=== PATIENT | female | born 1955 | race Two or more races ===

== ENCOUNTER 2021-01-09 08:38 | Emergency (ER) | payer OTHER ==
[~2021-01-09] VITALS: Ht 162.6 cm; Wt 44.5 kg
[2021-01-09 09:07] LABS: Urine Bacteria NONE SEEN /hpf (None Seen); Urine Blood 1+ /uL (Negative); Urine Mucus MANY (None Seen); Urine Specific Gravity 1.029 (1.001-1.035); Urine WBC 7 /hpf (0 - 5)
[2021-01-09 09:37] LABS: Basophils # (auto) 0.1 10 ^3/uL (0-0.2); Basophils % (auto) 1.3 % (0.0-2.0); Eosinophils # (auto) 0.1 10 ^3/uL (0-0.8); Eosinophils % (auto) 1.2 % (0.0-7.0); Hematocrit 38.7 % (36.0-46.0); Hemoglobin 13.3 g/dL (12.2-16.2); Lymphocytes # (auto) 2.8 10 ^3/uL (0.4-5.4); Lymphocytes % (auto) 28.4 % (10.0-50.0); Mean Corpuscular Hemoglobin 33.2 pg (28.0-32.0); Mean Corpuscular Hgb Conc. 34.4 g/dL (32.0-36.0); Mean Corpuscular Volume 96.5 fL (80.0-100.0); Monocytes # (auto) 0.3 10 ^3/uL (0-1.3); Monocytes % (auto) 3.4 % (0.0-12.0); Neutrophils # (auto) 6.4 10 ^3/uL (1.6-8.6); Neutrophils % (auto) 65.7 % (37.0-80.0); Nucleated Red Blood Cells % 0.2 %; Red Blood Cells 4.01 10^6/uL (4.0-5.20); Red Cell Distribution Width 14.2 % (11.8-14.3); White Blood Cell 9.8 10^3/uL (4.4-10.8)
[2021-01-09 09:53] LABS: Albumin 3.3 g/dL (3.4-5.0); Anion Gap 7 (5-15); Blood Alcohol < 3.0 mg/dL (0-5); Blood Urea Nitrogen 16 mg/dL (7-18); Calcium 8.9 mg/dL (8.5-10.1); Carbon Dioxide 25 mmol/L (21-32); Chloride 108 mmol/L (98-107); Glucose 74 mg/dL (74-106); Potassium 3.7 mmol/L (3.5-5.1); Sodium 140 mmol/L (136-145)
[2021-01-09 09:57] LABS: Alanine Aminotransferase 31 U/L (13-56); Alkaline Phosphatase 52 U/L (45-117); Aspartate Aminotransferase 34 U/L (15-37); BUN/Creatinine Ratio 14.7; Bilirubin, Total 0.8 mg/dL (0.2-1.0); GFR African American 64 mL/min; GFR Non-African American 53 mL/min; Total Protein 6.9 g/dL (6.4-8.2)
[2021-01-09] MEDS ORDERED: SODIUM CHLORIDE 0.9% 500 ML IV ONE (10:15)
[2021-01-09] MEDS ORDERED: SODIUM CHLORIDE 0.9% 1,000 ML IV ONE (10:15)
[2021-01-09] MEDS ORDERED: cefTRIAXone 1GM/50ML D5W 50 ML IV ONE (11:30)
[2021-01-09] MEDS ORDERED: LEVOTHYROXINE SODIUM 100 MCG/5 ML INJ IV ONE (11:30)
[2021-01-09 13:47] VITALS: BP 97/68
== END 2021-01-09 13:51 | disposition home or self-care (01) ==
LOC: ER 08:38
DX: R53.1 Weakness (principal); E03.9 Hypothyroidism, unspecified; N39.0 Urinary tract infection, site not specified; E46 Unspecified protein-calorie malnutrition; J44.9 Chronic obstructive pulmonary disease, unspecified; F17.210 Nicotine dependence, cigarettes, uncomplicated; C73 Malignant neoplasm of thyroid gland; Z68.1 Body mass index [BMI] 19.9 or less, adult
CPT/HCPCS: 36415; 71045; 80053; 80320; 81001; 83605; 83735; 84443; 84484; 85025; 87040; 87086; 93005; 96361; 96365; 96366; 96375; 99285; J0696; J3490; J7030; J7040

== ENCOUNTER 2021-11-13 07:27 | Emergency (ER) | payer OTHER ==
[~2021-11-13] VITALS: Ht 160 cm; Wt 50.2 kg
[2021-11-13 07:56] VITALS: BP 104/68
[2021-11-13] MEDS ORDERED: IBUPROFEN 600 MG TAB PO ONE (08:00)
[2021-11-13] MEDS ORDERED: cefTRIAXone SOD 1,000 MG VL IM ONE (08:00)
[2021-11-13] MEDS ORDERED: CLIN300C8 PO (08:13)
[2021-11-13] MEDS ORDERED: IBUP600T27 PO (08:13)
== END 2021-11-13 08:26 | disposition home or self-care (01) ==
LOC: ER 07:27
DX: K02.9 Dental caries, unspecified (principal); J44.9 Chronic obstructive pulmonary disease, unspecified
CPT/HCPCS: 96372; 99283; J0696

== ENCOUNTER 2022-12-12 08:14 | Inpatient (IN) | payer OTHER ==
[~2022-12-12] VITALS: Ht 160 cm; Wt 58.1 kg
[~2022-12-12 08:14] MED LIST: CLIN300C70 PO; IBUP-1454 PO
[2022-12-12 08:56] LABS: Basophils # (auto) 0.1 10 ^3/uL (0-0.2); Basophils % (auto) 0.2 % (0.0-2.0); Eosinophils # (auto) 0 10 ^3/uL (0-0.8); Eosinophils % (auto) 0.1 % (0.0-7.0); Hematocrit 41.1 % (36.0-46.0); Hemoglobin 13.6 g/dL (12.2-16.2); Lymphocytes # (auto) 1.7 10 ^3/uL (0.4-5.4); Lymphocytes % (auto) 7.1 % (10.0-50.0); Mean Corpuscular Hemoglobin 31.2 pg (28.0-32.0); Mean Corpuscular Hgb Conc. 33.1 g/dL (32.0-36.0); Mean Corpuscular Volume 94.1 fL (80.0-100.0); Monocytes # (auto) 1.2 10 ^3/uL (0-1.3); Monocytes % (auto) 4.9 % (0.0-12.0); Neutrophils # (auto) 21.3 10 ^3/uL (1.6-8.6); Neutrophils % (auto) 87.7 % (37.0-80.0); Red Blood Cells 4.36 10^6/uL (4.0-5.20); Red Cell Distribution Width 15.2 % (11.8-14.3); White Blood Cell 24.3 10^3/uL (4.4-10.8)
[2022-12-12 09:20] LABS: Alanine Aminotransferase 10 U/L (7-40); Albumin 4.4 g/dL (3.2-4.8); Alkaline Phosphatase 50 U/L (46-116); Anion Gap 10 (5-15); Aspartate Aminotransferase 16 U/L (13-40); BUN/Creatinine Ratio 14.6 (10.0-20.0); Bilirubin, Total 2.3 mg/dL (0.2-1.0); Blood Urea Nitrogen 12 mg/dL (9-23); Calcium 8.7 mg/dL (8.5-10.1); Carbon Dioxide 21 mmol/L (20-30); Chloride 105 mmol/L (98-107); Glucose 97 mg/dL (74-106); Lactic Acid w/Reflex 2.2 mmol/L (0.4-2.0); Potassium 3.4 mmol/L (3.5-5.1); Sodium 136 mmol/L (136-145); Total Protein 7.2 g/dL (5.7-8.2)
[2022-12-12 11:20] LABS: Urine Bacteria NONE SEEN /hpf (None Seen); Urine Blood 3+ /uL (Negative); Urine Clarity HAZY (Clear); Urine Color Yellow (Yellow); Urine Mucus FEW (None Seen); Urine Protein, UAD 1+ (Negative); Urine Specific Gravity 1.026 (1.001-1.035); Urine Urobilinogen Normal (Negative); Urine WBC 12 /hpf (0 - 5); Urine pH 5.5 (5.0-8.0)
[2022-12-12] MEDS ORDERED: CLINDAMYCIN 600MG IV 50 ML IV ONE (11:30)
[2022-12-12] MEDS ORDERED: ONDANSETRON HCL 4 MG/2 ML VIAL IV ONE (11:30)
[2022-12-12] MEDS ORDERED: SODIUM CHLORIDE 0.9% 500 ML IV ONE (11:30)
[2022-12-12] MEDS ORDERED: MORPHINE SULFATE INJ 2 MG/ml SYRG IV ONE (11:30)
[2022-12-12 11:32] VITALS: PULSE 88; RESP 19; O2SAT 97
[2022-12-12] MEDS: CLINDAMYCIN 300MG IV 50 ML IV SCH ×2 (12:06→14:10)
[2022-12-12] MEDS ORDERED: OXYB5TAB10 PO (14:30)
[2022-12-12] MEDS ORDERED: POTASSIUM EFFERVESENT TAB 25 MEQ PO ONE (14:30)
[2022-12-12] MEDS ORDERED: CITA-77 PO (14:30)
[2022-12-12] MEDS ORDERED: NITR100C6 PO (14:30)
[2022-12-12] MEDS ORDERED: LEVO50TA7 PO (14:30)
[2022-12-12] MEDS ORDERED: ACETAMINOPHEN 325 MG TAB PO PRN (14:30)
[2022-12-12] MEDS ORDERED: MORPHINE SULFATE INJ 2 MG/ml SYRG IV PRN (14:30)
[2022-12-12] MEDS ORDERED: NITROGLYCERIN 0.4 MG SL TAB SL PRN (14:30)
[2022-12-12] MEDS ORDERED: MIDO5TAB4 PO (14:30)
[2022-12-12] MEDS ORDERED: ALEN70TA74 PO (14:30)
[2022-12-12] MEDS: SODIUM CHLORIDE 0.9% 1,000 ML IV SCH (14:44)
[2022-12-12] MEDS ORDERED: ALENDRONATE SODIUM 10 MG TAB PO SCH (14:45)
[2022-12-12] MEDS ORDERED: ALBUTEROL MEDNEB 2.5 mg/3ml NEB NEB PRN (15:15)
[2022-12-12 19:25] VITALS: PULSE 86; RESP 19; O2SAT 96
[2022-12-12 21:11] VITALS: O2SAT 99
[2022-12-12] MEDS ORDERED: CLINDAMYCIN 600MG IV 50 ML IV SCH (22:00)
[2022-12-12] MEDS: OXYBUTYNIN CHL 5 MG TAB PO SCH (22:00)
[2022-12-12] MEDS: ASCORBIC ACID 500 MG TAB PO SCH (22:00)
[2022-12-12] MEDS: CLINDAMYCIN 300MG IV 100 ML IV SCH (22:30)
[2022-12-12 23:41] VITALS: BP 89/62; PULSE 87; RESP 18; TEMP 97.1
[2022-12-13] MEDS: SODIUM CHLORIDE 0.9% 1,000 ML IV SCH ×2 (03:50→18:55)
[2022-12-13 05:50] LABS: Basophils # (auto) 0 10 ^3/uL (0-0.2); Basophils % (auto) 0.3 % (0.0-2.0); Eosinophils # (auto) 0.2 10 ^3/uL (0-0.8); Eosinophils % (auto) 1.3 % (0.0-7.0); Hemoglobin 11.5 g/dL (12.2-16.2); Lymphocytes # (auto) 1.8 10 ^3/uL (0.4-5.4); Lymphocytes % (auto) 13.2 % (10.0-50.0); Mean Corpuscular Hemoglobin 31.3 pg (28.0-32.0); Mean Corpuscular Hgb Conc. 32.9 g/dL (32.0-36.0); Mean Corpuscular Volume 95.1 fL (80.0-100.0); Monocytes # (auto) 0.7 10 ^3/uL (0-1.3); Monocytes % (auto) 4.9 % (0.0-12.0); Neutrophils % (auto) 80.3 % (37.0-80.0); Nucleated Red Blood Cells % 0.1 %; Red Blood Cells 3.68 10^6/uL (4.0-5.20); Red Cell Distribution Width 15.3 % (11.8-14.3); White Blood Cell 13.8 10^3/uL (4.4-10.8)
[2022-12-13 05:56] LABS: Alkaline Phosphatase 41 U/L (46-116); Anion Gap 8 (5-15); BUN/Creatinine Ratio 10.8 (10.0-20.0); Blood Urea Nitrogen 7 mg/dL (9-23); Carbon Dioxide 20 mmol/L (20-30); Chloride 109 mmol/L (98-107); Glucose 76 mg/dL (74-106); Potassium 3.4 mmol/L (3.5-5.1); Sodium 137 mmol/L (136-145)
[2022-12-13 05:57] LABS: Albumin 3.4 g/dL (3.2-4.8); Aspartate Aminotransferase 12 U/L (13-40); Bilirubin, Total 1.3 mg/dL (0.2-1.0); Total Protein 5.6 g/dL (5.7-8.2)
[2022-12-13 06:06] VITALS: O2SAT 97
[2022-12-13 06:22] LABS: Alanine Aminotransferase < 9 U/L (7-40)
[2022-12-13] MEDS: CLINDAMYCIN 300MG IV 100 ML IV SCH (06:32)
[2022-12-13] MEDS ORDERED: MEGE40TA4 (07:36)
[2022-12-13 08:12] VITALS: BP 107/63; PULSE 65; PULSE 72; RESP 18; TEMP 98; O2SAT 98
[2022-12-13] MEDS: MULTIPLE VITAMIN TAB PO SCH (10:58)
[2022-12-13] MEDS: ZINC SULFATE 220mg CAP or TAB PO SCH (10:58)
[2022-12-13] MEDS: ASCORBIC ACID 500 MG TAB PO SCH ×2 (10:58→22:11)
[2022-12-13] MEDS: LEVOTHYROXINE SODIUM 50 MCG TAB PO SCH (10:58)
[2022-12-13] MEDS: OXYBUTYNIN CHL 5 MG TAB PO SCH ×2 (10:59→22:11)
[2022-12-13] MEDS: CITALOPRAM HYDROBR 20 MG TAB PO SCH (10:59)
[2022-12-13] MEDS: MIDODRINE HCL 10 MG TAB PO SCH (10:59)
[2022-12-13] MEDS: ENOXAPARIN SOD 40 MG/0.4 ML SYRINGE SC SCH (11:00)
[2022-12-13] MEDS ORDERED: VANCOMYCIN 1GM/250ML 250 ML IV ONE (11:00)
[2022-12-13] MEDS ORDERED: VANCOMYCIN PER PHARMACY 0 MG IV SCH (11:00)
[2022-12-13 17:24] VITALS: BP 107/63; PULSE 85; RESP 20; TEMP 98; O2SAT 95
[2022-12-13 20:00] VITALS: BP 94/50; PULSE 71; PULSE 72; RESP 17; TEMP 97.5; O2SAT 98
[2022-12-13 22:00] VITALS: BP 94/50; PULSE 71; RESP 17; TEMP 97.5; O2SAT 98
[2022-12-13 22:20] VITALS: O2SAT 97
[2022-12-14] VITALS (8 sets, daily range): BP systolic 96–122; BP diastolic 50–60; PULSE 60–81; RESP 17–19; TEMP 97.5–98.1; O2SAT 98–100
[2022-12-14] MEDS: SODIUM CHLORIDE 0.9% 1,000 ML IV SCH ×2 (02:59→21:53)
[2022-12-14] MEDS ORDERED: VANCOMYCIN 1GM/250ML 250 ML IV SCH (03:00)
[2022-12-14] MEDS: ASCORBIC ACID 500 MG TAB PO SCH ×2 (11:23→21:41)
[2022-12-14] MEDS: LEVOTHYROXINE SODIUM 50 MCG TAB PO SCH (11:23)
[2022-12-14] MEDS: MIDODRINE HCL 10 MG TAB PO SCH (11:23)
[2022-12-14] MEDS: ZINC SULFATE 220mg CAP or TAB PO SCH (11:23)
[2022-12-14] MEDS: OXYBUTYNIN CHL 5 MG TAB PO SCH ×2 (11:24→21:41)
[2022-12-14] MEDS: CITALOPRAM HYDROBR 20 MG TAB PO SCH (11:24)
[2022-12-14] MEDS: ENOXAPARIN SOD 40 MG/0.4 ML SYRINGE SC SCH (11:24)
[2022-12-14] MEDS: MULTIPLE VITAMIN TAB PO SCH (11:24)
[2022-12-14] MEDS: AMPICILLIN INJ 1 GM in SODIUM CHL 0.9% 100 ML IV SCH ×2 (13:28→18:52)
[2022-12-14] MEDS ORDERED: TEMAZEPAM 15 MG CAP PO PRN (23:30)
[2022-12-15] MEDS: AMPICILLIN INJ 1 GM in SODIUM CHL 0.9% 100 ML IV SCH ×3 (00:30→12:30)
[2022-12-15] MEDS: NICOTINE 14 MG/24HR TOPICAL PATCH TD SCH ×2 (00:31→10:58)
[2022-12-15 05:00] VITALS: BP 119/74; PULSE 78; RESP 19; TEMP 98.3; O2SAT 100
[2022-12-15 08:30] VITALS: PULSE 70; PULSE 72; RESP 18; O2SAT 100
[2022-12-15 09:31] LABS: Hepatitis B Surface Antigen Negative (Negative)
[2022-12-15 09:53] LABS: Hepatitis C Antibody Negative (Negative)
[2022-12-15] MEDS: LEVOTHYROXINE SODIUM 50 MCG TAB PO SCH (10:55)
[2022-12-15] MEDS: CITALOPRAM HYDROBR 20 MG TAB PO SCH (10:55)
[2022-12-15] MEDS: ZINC SULFATE 220mg CAP or TAB PO SCH (10:55)
[2022-12-15] MEDS: SODIUM CHLORIDE 0.9% 1,000 ML IV SCH (10:55)
[2022-12-15] MEDS: OXYBUTYNIN CHL 5 MG TAB PO SCH (10:55)
[2022-12-15] MEDS: MIDODRINE HCL 10 MG TAB PO SCH (10:56)
[2022-12-15] MEDS: MULTIPLE VITAMIN TAB PO SCH (10:56)
[2022-12-15] MEDS: ENOXAPARIN SOD 40 MG/0.4 ML SYRINGE SC SCH (10:56)
[2022-12-15] MEDS: ASCORBIC ACID 500 MG TAB PO SCH (10:57)
[2022-12-15] MEDS ORDERED: AMPI500C9 PO (12:29)
[2022-12-15] MEDS ORDERED: HYDR-4902 PO (12:30)
== END 2022-12-15 15:00 | disposition home or self-care (01) | DRG 872 ==
LOC: ER 08:14 → TELE 14:30 → TELE-WESTW 12-13 08:54
PROVIDERS: ADMIT Nurse Practitioner Family; ATTEND Family Medicine
DX: A41.9 Sepsis, unspecified organism (principal); L03.114 Cellulitis of left upper limb; J44.1 Chronic obstructive pulmonary disease with (acute) exacerbation; N30.00 Acute cystitis without hematuria; F17.210 Nicotine dependence, cigarettes, uncomplicated; E80.6 Other disorders of bilirubin metabolism; I95.89 Other hypotension; F32.A Depression, unspecified; E03.9 Hypothyroidism, unspecified; E87.6 Hypokalemia; S61.412A Laceration without foreign body of left hand, initial encounter; X58.XXXA Exposure to other specified factors, initial encounter; Z85.850 Personal history of malignant neoplasm of thyroid; Z79.1 Long term (current) use of non-steroidal anti-inflammatories (NSAID); Z79.899 Other long term (current) drug therapy; Z80.9 Family history of malignant neoplasm, unspecified; Z83.3 Family history of diabetes mellitus; Y93.89 Activity, other specified; Y92.89 Other specified places as the place of occurrence of the external cause; Y99.8 Other external cause status
CPT/HCPCS: 36415; 73200; 80053; 81001; 83605; 83735; 85025; 86803; 87040; 87070; 87077; 87081; 87086; 87205; 87340; G0378; J2405; J3490

== ENCOUNTER 2023-07-16 16:25 | Emergency (ER) | payer OTHER ==
[~2023-07-16] VITALS: Ht 160 cm; Wt 51.0 kg
[~2023-07-16 16:25] MED LIST changes: +ALEN70TA74 PO; +AMPI500C9 PO; +CITA-77 PO; +CLIN1CAP70 PO; -CLIN300C70 PO; +HYDR-4902 PO; +LEVO50TA7 PO; +MEGE40TA4; +MIDO5TAB4 PO; +NITR100C6 PO; +OXYB5TAB14 PO
[2023-07-16 17:15] LABS: Basophils # (auto) 0 10 ^3/uL (0-0.2); Basophils % (auto) 0.3 % (0.0-2.0); Eosinophils # (auto) 0.1 10 ^3/uL (0-0.8); Eosinophils % (auto) 0.5 % (0.0-7.0); Hematocrit 42.1 % (36.0-46.0); Hemoglobin 13.9 g/dL (12.2-16.2); Mean Corpuscular Hemoglobin 28.5 pg (28.0-32.0); Mean Corpuscular Hgb Conc. 33.1 g/dL (32.0-36.0); Mean Corpuscular Volume 86.2 fL (80.0-100.0); Monocytes # (auto) 0.6 10 ^3/uL (0-1.3); Monocytes % (auto) 5.3 % (0.0-12.0); Neutrophils % (auto) 84.9 % (37.0-80.0); Red Blood Cells 4.89 10^6/uL (4.0-5.20); Red Cell Distribution Width 13.5 % (11.8-14.3); White Blood Cell 10.6 10^3/uL (4.4-10.8)
[2023-07-16 17:29] LABS: Alanine Aminotransferase 16 U/L (7-40); Albumin 4.3 g/dL (3.2-4.8); Alkaline Phosphatase 46 U/L (46-116); Anion Gap 8 (5-15); Aspartate Aminotransferase 14 U/L (13-40); BUN/Creatinine Ratio 31.9 (10.0-20.0); Bilirubin, Total 0.7 mg/dL (0.2-1.0); Blood Urea Nitrogen 23 mg/dL (9-23); Calcium 9.2 mg/dL (8.5-10.1); Carbon Dioxide 21 mmol/L (20-30); Chloride 109 mmol/L (98-107); Glucose 123 mg/dL (74-106); Potassium 3.7 mmol/L (3.5-5.1); Sodium 138 mmol/L (136-145); Total Protein 6.6 g/dL (5.7-8.2)
[2023-07-16 20:14] LABS: Urine Bacteria FEW /hpf (None Seen); Urine Blood 3+ /uL (Negative); Urine Clarity Ex.Turbid (Clear); Urine Color Yellow (Yellow); Urine Mucus FEW (None Seen); Urine Protein, UAD 2+ (Negative); Urine Specific Gravity 1.025 (1.001-1.035); Urine Urobilinogen Normal (Negative); Urine WBC 632 /hpf (0 - 5); Urine WBC Clumps PRESENT /hpf (None Seen); Urine pH 5.5 (5.0-9.0)
[2023-07-16] MEDS ORDERED: BACDST PO (21:01)
[2023-07-16 21:20] VITALS: BP 107/63; PULSE 113; RESP 16; TEMP 97.6; O2SAT 97
[2023-07-16] MEDS: SULFAMETHOX W/TRIMETH(800/160MG) DS TAB PO ONE (21:20)
== END 2023-07-16 21:23 | disposition home or self-care (01) ==
LOC: ER 16:25
DX: N39.0 Urinary tract infection, site not specified (principal); R53.1 Weakness; R41.82 Altered mental status, unspecified; J44.9 Chronic obstructive pulmonary disease, unspecified; F17.210 Nicotine dependence, cigarettes, uncomplicated
CPT/HCPCS: 36415; 70450; 71045; 80053; 81001; 83880; 84484; 85025; 93005

== ENCOUNTER 2025-01-30 08:23 | Inpatient (IN) | payer OTHER ==
[~2025-01-30] VITALS: Ht 160 cm; Wt 41.9 kg
[~2025-01-30 08:23] MED LIST changes: -AMPI500C9 PO; +BACDST PO; -CLIN1CAP70 PO; +LEVO112T4 PO; -LEVO50TA7 PO; +MEMA1TAB3 PO; +MIDO10TA3 PO; -MIDO5TAB4 PO
--- NOTE | 2025-01-30 09:07 | ED.PDOC ---
History of Present Illness HPI Comments 69 year old female with PMHx of COPD and dementia presents to the emergency department for chief complaint of right hip wound onset chronic. Pt reports that they have been bedridden for 2 years and needs the wound on right hip to be checked due to drainage and deterioration. Pt reports that they have tried to contract a wound nurse to regularly perform home visits but to no avail due to insurance complications. Pt reports no associated symptoms of headache, fever, dizziness, syncope, or chest pain. Chief Complaint: Wound Check Time Seen by MD: 09:04 Primary Care Provider: YANG Reviewed Notes: Nurses Notes, Medications, Allergies Allergies: Coded Allergies: NO KNOWN ALLERGIES (Unverified , 11/13/21) Home Meds Active Scripts Sulfamethoxazole W/Trimethopri (Bactrim Ds Tablet) 1 Tab Tb, 1 TAB PO BID for 10 Days, #20 TAB Prov:DARION SAVAGE PAC 07/16/23 Hydrocodone-Acetaminophen (Hydrocodone Bitartrate/AC 5-325 mg) 1 Tab Tab, 1 TAB PO Q6HR PRN, #30 TAB Prov:HINA AGEE MD 12/15/22 Ibuprofen (Ibuprofen) 600 Mg Tab, 1 TAB PO TID, #30 TAB Prov:MICHAEL CHRISTY 11/13/21 Reported Medications Midodrine Hcl (Midodrine Hcl) 10 Mg Tab, 1 TAB PO DAILY 06/19/24 Memantine Hydrochloride (Memantine HCl) 5 Mg Tab, 1 TAB PO BID 06/19/24 Levothyroxine Sodium (Levothyroxine Sodium) 112 Mcg Tab, 1 TAB PO DAILY 06/19/24 Megestrol Acetate (Megestrol Acetate) 40 Mg Tab 12/13/22 Nitrofurantoin Monohyd Macro (Nitrofurantoin Monohydrat) 100 Mg Cap, 1 CAP PO BID 12/12/22 Alendronate Sodium (Alendronate Sodium) 70 Mg Tab, 1 TAB PO QWEEKLY 12/12/22 Citalopram Hydrobromide (Citalopram Hydrobromide) 20 Mg Tab, 1 TAB PO DAILY 12/12/22 Oxybutynin Chloride (Oxybutynin Chloride) 5 Mg Tab, 1 TAB PO BID 12/12/22 Information Source: Patient, Relative (Child) Mode of Arrival: Wheelchair Severity: Moderate Timing: Months, Came on: Gradually Duration: Since onset Past Medical History PAST MEDICAL HISTORY: Cancer, COPD, Dementia, Thyroid Surgical History: Thyroidectomy AD WRITER History: No Pertinent AD WRITER History Family History Family History: Family hx of DM, Family hx of Cancer Social History Smoker: Cigarettes Alcohol: Denies ETOH Use Drugs: Denies Drug Use Lives In: Home Physical Exam General Appearance: Moderate Distress HEENT: Normal ENT Inspection, Pharynx Normal, TMs Normal Neck: Full Range of Motion, Non-Tender, Normal, Normal Inspection Respiratory: Chest Non-Tender, Lungs Clear, No Accessory Muscle Use, No Respiratory Distress, Normal Breath Sounds Cardiovascular: No Edema, No JVD, No Murmur, No Gallop, Normal Peripheral Pulses, Regular Rate/Rhythm Breast Exam: Deferred Gastrointestinal: No Organomegaly, Non Tender, No Pulsatile Mass, Normal Bowel Sounds, Soft Genitalia: Deferred Pelvic: Deferred Rectal: Deferred Extremities: No calf tenderness, No pedal edema Musculoskeletal : Apperance: Normal Neurologic: No Motor Deficits Cerebellar Function: NOT DONE Reflexes: NOT DONE Skin: Wounds (Buttocks hip) Peripheral Pulses: 3+ Radial (R), 3+ Radial (L) Lymphatic: No Adenopathy Was a procedure done? Was a procedure done?: No Differential Dx Considerations may include: Anemia Electrolyte imbalance X-Ray, Labs, Meds, VS Vital Signs Date Time Temp Pulse Resp B/P (MAP) Pulse Ox O2 Delivery O2 Flow Rate FiO2 01/30/25 10:55 104 26 111/61 (78) 96 01/30/25 09:53 105 24 99 Room Air* 0 21 01/30/25 09:38 97.9 105 24 103/64 (77) 99 97.9 01/30/25 08:38 97.7 91 14 114/68 98 97.7 Lab Test 01/30/25 12:16 01/30/25 09:52 Range/Units Lactic Acid Level Pending 2.6 *H 0.4-2.0 mmol/L White Blood Count 10.6 4.4-10.8 10^3/uL Red Blood Count 4.33 4.0-5.20 10^6/uL Hemoglobin 12.7 12.2-16.2 g/dL Hematocrit 37.7 36.0-46.0 % Mean Corpuscular Volume 87.0 80.0-100.0 fL Mean Corpuscular Hemoglobin 29.3 28.0-32.0 pg Mean Corpuscular Hemoglobin Concent 33.7 32.0-36.0 g/dL Red Cell Distribution Width 13.0 11.8-14.3 % Platelet Count 494 H 140-450 10^3/uL Mean Platelet Volume 8.6 6.9-10.8 fL Neutrophils (%) (Auto) 75.9 37.0-80.0 % Lymphocytes (%) (Auto) 17.0 10.0-50.0 % Monocytes (%) (Auto) 4.8 0.0-12.0 % Eosinophils (%) (Auto) 1.3 0.0-7.0 % Basophils (%) (Auto) 1.0 0.0-2.0 % Neutrophils # (Auto) 8.1 1.6-8.6 10 ^3/uL Lymphocytes # (Auto) 1.8 0.4-5.4 10 ^3/uL Monocytes # (Auto) 0.5 0-1.3 10 ^3/uL Eosinophils # (Auto) 0.1 0-0.8 10 ^3/uL Basophils # (Auto) 0.1 0-0.2 10 ^3/uL Nucleated Red Blood Cells 0.0 % Sodium Level 139 136-145 mmol/L Potassium Level 3.4 L 3.5-5.1 mmol/L Chloride Level 108 H 98-107 mmol/L Carbon Dioxide Level 21 20-31 mmol/L Anion Gap 10 5-15 Blood Urea Nitrogen 6 L 9-23 mg/dL Creatinine 0.43 L 0.550-1.02 mg/dL Glomerular Filtration Rate Calc 104 >90 mL/min BUN/Creatinine Ratio 14.0 10.0-20.0 Serum Glucose 132 H 74-106 mg/dL Calcium Level 8.4 L 8.7-10.4 mg/dL Current Medications Medications (Trade) Dose Ordered Sig/Owen Route Start Time Stop Time Status Last Admin Sodium Chloride 1,000 ml @ 1,000 mls/hr Q1H ONCE IV 01/30/25 09:15 01/30/25 10:14 DC 01/30/25 09:48 Sodium Chloride 500 ml @ 500 mls/hr Q1H ONCE IV 01/30/25 10:15 01/30/25 11:14 DC 01/30/25 10:32 Ceftriaxone Sodium 50 ml @ 100 mls/hr ONCE ONCE IV 01/30/25 10:15 01/30/25 10:44 DC 01/30/25 10:20 Clindamycin Phosphate 50 ml @ 50 mls/hr ONCE ONCE IV 01/30/25 10:15 01/30/25 11:14 DC 01/30/25 11:11 Patient appropriate. Has wounds in the buttocks. Vitals stable. Answering questions. Establish intravenous access. Was given fluids. Possible sepsis. Was given Rocephin. Was given clindamycin. Explained to the family. Continue monitoring. Time of 1ST Reevaluation: 09:34 Reevaluation 1ST: Unchanged Patient Education/Counseling: Diagnosis, Treatment, Need For Follow Up Family Education/Counseling: Diagnosis, Treatment, Need For Follow Up, No Family Present SEPSIS Sepsis Screen Date sepsis recognized/suspect: Jan 30, 2025 Time Sepsis recognized/suspect: 837 Recent Procedure: No On Antibiotic Therapy: No Respiratory Rate >20: No Heart Rate >90: No Temp<36 C (96.8 F) or >38.3 C: No SBP <90 or MAP <65 mmHG: No New Acute Mental Status Change: No Is the patient on CPAP, BIPAP,: No Physician Orders Chest Portable (01/30/25 09:06) Urinalysis (01/30/25 09:06) Ct Ab Pel Wo Con-No Oral Or Iv (01/30/25 09:06) Blood Culture (01/30/25 09:46) Vital Signs Date Time Temp Pulse Resp B/P (MAP) Pulse Ox O2 Delivery O2 Flow Rate FiO2 01/30/25 10:55 104 26 111/61 (78) 96 01/30/25 09:53 105 24 99 Room Air* 0 21 01/30/25 09:38 97.9 105 24 103/64 (77) 99 97.9 01/30/25 08:38 97.7 91 14 114/68 98 97.7 Laboratory Tests Test 01/30/25 09:52 01/30/25 12:16 Lactic Acid Level 2.6 mmol/L (0.4-2.0) *H Pending White Blood Count 10.6 10^3/uL (4.4-10.8) Medications Medications Dose Ordered Sig/Owen Route Start Time Stop Time Status Last Admin Dose Admin Ceftriaxone Sodium 50 ml @ 100 mls/hr ONCE ONCE IV 01/30/25 10:15 01/30/25 10:44 DC 01/30/25 10:20 Clindamycin Phosphate 50 ml @ 50 mls/hr ONCE ONCE IV 01/30/25 10:15 01/30/25 11:14 DC 01/30/25 11:11 Sodium Chloride 500 ml @ 500 mls/hr Q1H ONCE IV 01/30/25 10:15 01/30/25 11:14 DC 01/30/25 10:32 Sodium Chloride 1,000 ml @ 1,000 mls/hr Q1H ONCE IV 01/30/25 09:15 01/30/25 10:14 DC 01/30/25 09:48 Departure 1 Departure Time of Disposition: 12:41 Impression: Primary Impression: Sepsis, unspecified organism Qualified Codes: A41.9 - Sepsis, unspecified organism Disposition: ADMITTED INPATIENT Admit to: Med Surg Condition: Guarded Critical Care Note Critical Care Time?: No Stability Stability form required: No Heart Score Heart Score: Heart Score Response (Comments) Value History N/A 0 EKG N/A 0 Age N/A 0 Risk Factors N/A 0 Troponin N/A 0 Total 0 I personally scribed for DEEPA MUNGUIA MD ([email or web address]) on 01/30/25 at 09:07. Electronically submitted by Ashlee Carney ([email or web address]). I personally scribed for DEEPA MUNGUIA MD ([email or web address]) on 01/30/25 at 09:09. Electronically submitted by Ashlee Carney ([email or web address]). DEEPA MUNGUIA MD Jan 30, 2025 09:07
[2025-01-30] MEDS: SODIUM CHLORIDE 0.9% 1,000 ML IV ONE (09:48)
[2025-01-30 09:53] VITALS: PULSE 105; RESP 24; O2SAT 99
--- NOTE | 2025-01-30 09:53 | DVH ---
CHEST RADIOGRAPH INDICATION: sob TECHNIQUE: Single frontal view of the chest was obtained COMPARISON: XY CHEST PORTABLE on DOS: 06/19/24, XY CHEST PORTABLE on DOS: 07/16/23, CHEST PORTABLE on DOS: 01/09/21 FINDINGS: Lines and Tubes: None Lungs: Clear Pleura: No effusion. No pneumothorax. Cardiomediastinal contours: Unremarkable Bones: Unremarkable IMPRESSION: No acute disease.
--- NOTE | 2025-01-30 10:16 | DVH ---
EXAM: CT CT AB PEL WO CON-NO ORAL OR IV History: Decubitus Comparison Study: None TECHNIQUE: Multidetector CT of the abdomen was performed from lung bases to pubic symphysis. Imaging was performed without IV contrast. Axial, coronal and sagittal multiplanar reformats were obtained from the axial data set by the technologist. Radiation Dose Information: CT Dose: CTDI volume is 5.09 mGy. Dose-length product is 240.06 mGy*cm FINDINGS: Evaluation of solid organs is limited due to lack of intravenous contrast use. FINDINGS: Lung Bases: No acute or significant lung base finding. Normal heart size. No pleural or pericardial effusion. Liver: The liver is normal in size. No focal lesions. Gallbladder and Biliary Tree: Unremarkable Spleen: Unremarkable Pancreas: The pancreas is grossly normal in appearance. Adrenal Glands: Unremarkable Kidneys: Kidneys are grossly normal without calculi or hydronephrosis. Bladder: Grossly unremarkable for degree of distention. Bowel: There is a very large amount of retained stool present within the rectum and colon. Ascites: Absent Lymphadenopathy: No mesenteric, retroperitoneal or periportal lymphadenopathy. Abdominal Wall and Mesentery: Unremarkable. Vasculature: The visualized abdominal aorta is normal in size and caliber. Evaluation of abdominal and pelvic vessels is limited due to lack of intravenous contrast. Pelvic Organs: Unremarkable Musculoskeletal: No aggressive focal bony lesions, acute fractures or dislocation. Soft tissues: There is a 3.0 cm soft tissue defect located on the right at the level of the posterior right femoral neck. IMPRESSION: 1. Findings consistent with decubitus ulcer on the right. 2. Large amount of retained stool is present within the rectum and colon. 3. Radiation optimization: All CT scans at this facility use at least one of these dose optimization techniques: automated exposure control mA and/or kV adjustment per patient size (includes targeted exams where dose is matched to clinical indication) or iterative reconstruction.
[2025-01-30] MEDS: SODIUM CHLORIDE 0.9% 500 ML IV ONE (10:32)
[2025-01-30 10:33] LABS: Hematocrit 37.7 % (36.0-46.0); Hemoglobin 12.7 g/dL (12.2-16.2); Mean Corpuscular Hemoglobin 29.3 pg (28.0-32.0); Mean Corpuscular Volume 87.0 fL (80.0-100.0); Nucleated Red Blood Cells % 0.0 %
[2025-01-30 10:35] LABS: Sodium 139 mmol/L (136-145)
[2025-01-30 10:36] LABS: Anion Gap 10 (5-15); Carbon Dioxide 21 mmol/L (20-31)
[2025-01-30 10:41] LABS: Calcium 8.4 mg/dL (8.7-10.4); Chloride 108 mmol/L (98-107); Potassium 3.4 mmol/L (3.5-5.1)
[2025-01-30 10:42] LABS: BUN/Creatinine Ratio 14.0 (10.0-20.0)
[2025-01-30 10:43] LABS: Blood Urea Nitrogen 6 mg/dL (9-23); Glucose 132 mg/dL (74-106)
[2025-01-30 10:51] LABS: Lactic Acid w/Reflex 2.6 mmol/L (0.4-2.0)
[2025-01-30] MEDS: CLINDAMYCIN 300MG IV 50 ML IV ONE (11:11)
[2025-01-30] MEDS ORDERED: ONDANSETRON HCL 4 MG/2 ML VIAL IV PRN (13:30)
[2025-01-30] MEDS ORDERED: NITROGLYCERIN 0.4 MG SL TAB SL PRN (13:30)
[2025-01-30] MEDS ORDERED: ACETAMINOPHEN 325 MG TAB PO PRN (13:30)
--- NOTE | 2025-01-30 13:42 | DVHHPRES ---
History of Present Illness Resident Creating Document: KERWIN HORNER RESIDENT History of Present Illness Ms Cheung is a 69 y o female with a history of dementia, osteoporosis, thyroid disease, recently discovered clogged artery, and brain aneurysm presenting with a chronic wound that has developed into a hole-like lesion. The wound initially started in mid-to-late September and has followed a pattern of opening and closing over time. The caregiver reports that while the wound appears to have healed on the surface, it has not healed internally and has progressed to form what appears to be a deep cavity with black tissue visible inside, along with some yellow and red tissue. The wound causes pain during cleaning and wiping, which is evident despite the patient's dementia. The patient was recently found to have a clogged artery and was started on cholesterol medication. She also has an aneurysm in her brain and recently underwent a lumbar puncture, which reportedly increased her intracranial pressure. The caregiver mentions the patient has been experiencing increased brain pressure for which patient was started on acetazolamide. Medical History - Aneurysm in brain - Atherosclerosis - Dementia - Osteoporosis - Thyroid condition Surgical History - Lumbar puncture performed recently, which increased intracranial pressure Social History - Living Situation: Lives with caregiver who works at the facility - Caregiving Resources: Primary caregiver is working on obtaining home health services, no current home health aide or social science teacher in place Medications and Supplements - levothyroxine 112 mcg, midodrine HCL 10 mg, memantine HCl 10 mg, Megestrol acetate 40 mg, oxybutynin 5 mg, vitamin D3 5000, alendronate sodium 70 mg, cyanocobalamin, Pepcid 40 mg Review of Systems General: Negative for fever. Neurological: Patient has dementia affecting baseline mental status. Review of Systems Allergies: Coded Allergies: NO KNOWN ALLERGIES (Unverified , 11/13/21) Medications Current Medications Medications Dose Ordered Sig/Owen Route Start Time Stop Time Status Last Admin Dose Admin Sodium Chloride 10 ml Q8HR IV 01/30/25 14:00 UNV Ondansetron HCl 4 mg Q4HP PRN IV 01/30/25 13:30 UNV Enoxaparin Sodium 40 mg DAILY SC 01/31/25 10:00 UNV Acetaminophen 650 mg Q6HP PRN PO 01/30/25 13:30 UNV Nitroglycerin 0.4 mg Q5MINP PRN SL 01/30/25 13:30 UNV Morphine Sulfate 2 mg Q30M PRN IV 01/30/25 13:30 UNV Piperacillin Sod/ Tazobactam Sod 100 ml @ 25 mls/hr Q6HR IV 01/30/25 18:00 UNV Doxycycline Hyclate 100 ml @ 50 mls/hr Q12H IV 01/30/25 13:30 UNV Exam Vital Signs Vital Signs Date Time Temp Pulse Resp B/P (MAP) Pulse Ox O2 Delivery O2 Flow Rate FiO2 01/30/25 10:55 104 26 111/61 (78) 96 01/30/25 09:53 Room Air* 0 21 01/30/25 09:38 97.9 97.9 Exam Pt is lying on bed, limited exam due to patient's clinical status General Appearance: Alert, Oriented X2, HEENT: Atraumatic, Mucous membranes moist/pink Respiratory: Clear to auscultation, Normal air movement, No added sounds Cardiovascular: Regular rate, Normal S1, Normal S2, No murmurs Abdominal: Active bowel sounds, Soft, no distention, no tenderness Extremities: No edema, Normal pulses, No tenderness/swelling Skin: Wound present with black tissue visible inside. Yellow tissue noted with some black tissue on one side. Red tissue also observed in the wound area. Neuro: Normal speech Nurse was there as plastic welding machine operator during examination Labs/Xrays Labs Test 01/30/25 12:16 01/30/25 09:52 Range/Units Lactic Acid Level 1.6 0.4-2.0 mmol/L White Blood Count 10.6 4.4-10.8 10^3/uL Red Blood Count 4.33 4.0-5.20 10^6/uL Hemoglobin 12.7 12.2-16.2 g/dL Hematocrit 37.7 36.0-46.0 % Mean Corpuscular Volume 87.0 80.0-100.0 fL Mean Corpuscular Hemoglobin 29.3 28.0-32.0 pg Mean Corpuscular Hemoglobin Concent 33.7 32.0-36.0 g/dL Red Cell Distribution Width 13.0 11.8-14.3 % Platelet Count 494 H 140-450 10^3/uL Mean Platelet Volume 8.6 6.9-10.8 fL Neutrophils (%) (Auto) 75.9 37.0-80.0 % Lymphocytes (%) (Auto) 17.0 10.0-50.0 % Monocytes (%) (Auto) 4.8 0.0-12.0 % Eosinophils (%) (Auto) 1.3 0.0-7.0 % Basophils (%) (Auto) 1.0 0.0-2.0 % Neutrophils # (Auto) 8.1 1.6-8.6 10 ^3/uL Lymphocytes # (Auto) 1.8 0.4-5.4 10 ^3/uL Monocytes # (Auto) 0.5 0-1.3 10 ^3/uL Eosinophils # (Auto) 0.1 0-0.8 10 ^3/uL Basophils # (Auto) 0.1 0-0.2 10 ^3/uL Nucleated Red Blood Cells 0.0 % Sodium Level 139 136-145 mmol/L Potassium Level 3.4 L 3.5-5.1 mmol/L Chloride Level 108 H 98-107 mmol/L Carbon Dioxide Level 21 20-31 mmol/L Anion Gap 10 5-15 Blood Urea Nitrogen 6 L 9-23 mg/dL Creatinine 0.43 L 0.550-1.02 mg/dL Glomerular Filtration Rate Calc 104 >90 mL/min BUN/Creatinine Ratio 14.0 10.0-20.0 Serum Glucose 132 H 74-106 mg/dL Calcium Level 8.4 L 8.7-10.4 mg/dL SEPSIS Sepsis Screen Date sepsis recognized/suspect: Jan 30, 2025 Time Sepsis recognized/suspect: 939 Recent Procedure: No On Antibiotic Therapy: No Respiratory Rate >20: Yes Heart Rate >90: Yes Temp<36 C (96.8 F) or >38.3 C: No SBP <90 or MAP <65 mmHG: No New Acute Mental Status Change: No Is the patient on CPAP, BIPAP,: No Physician Orders Chest Portable (01/30/25 09:06) Urinalysis (01/30/25 09:06) Ct Ab Pel Wo Con-No Oral Or Iv (01/30/25 09:06) Blood Culture (01/30/25 09:46) Admit (01/30/25 13:17) Allergies (01/30/25 13:17) Code Status (01/30/25 13:17) 2 Gm Sodium Diet (01/30/25 Lunch) Sodium Chloride Lock (Saline Lock Ns) (01/30/25 14:00) Ondansetron Hcl (Zofran) (01/30/25 13:30) Enoxaparin Sodium (Lovenox) (01/31/25 10:00) Complete Blood Count (01/31/25 04:00) Comprehensive Metabolic Panel (01/31/25 04:00) Condition: Fair (01/30/25 13:17) Acetaminophen Tablet (Tylenol Tablet) (01/30/25 13:30) Nitroglycerin Sublingual (Ntrostat Subli (01/30/25 13:30) Oxygen By Nasal Cannula (01/30/25 13:17) Stat Ekg For Chest Pain (01/30/25 13:17) Notify Of Changes From Base (01/30/25 13:17) [employer] Servicer For 24 Hours (01/30/25 13:17) Emergency Dysrhythmia Protocol (01/30/25 13:17) Rhythm Strips Once Every Shift (01/30/25 13:17) Wound Culture W/ Gs (01/30/25 13:17) * Wound Consult (01/30/25 ) Mrsa Screen (01/30/25 13:17) Piperacillin-Tazob 3.375gm (Zosyn 3.375g (01/30/25 18:00) Doxycycline 100mg/100ml (Vibramycin) (01/30/25 13:30) Morphine Sulfate Injection (01/30/25 13:45) Pantoprazole (Protonix) (01/30/25 13:45) B-Type Natriuretic Peptide (01/30/25 13:37) Levothyroxine Tablet (Synthroid Tablet) (01/31/25 10:00) Memantine Tablet (Namenda Tablet) (01/30/25 22:00) Midodrine Tablet (Proamatine Tablet) (01/31/25 10:00) Oxybutynin Chloride Tablet (Ditropan Tab (01/30/25 22:00) Potassium Effervesent Tab (Klor-Con/Ef) (01/30/25 13:45) Vital Signs Date Time Temp Pulse Resp B/P (MAP) Pulse Ox O2 Delivery O2 Flow Rate FiO2 01/30/25 10:55 104 26 111/61 (78) 96 01/30/25 09:53 105 24 99 Room Air* 0 21 01/30/25 09:38 97.9 105 24 103/64 (77) 99 97.9 01/30/25 08:38 97.7 91 14 114/68 98 97.7 Laboratory Tests Test 01/30/25 09:52 01/30/25 12:16 Lactic Acid Level 2.6 mmol/L (0.4-2.0) *H 1.6 mmol/L (0.4-2.0) White Blood Count 10.6 10^3/uL (4.4-10.8) Medications Medications Dose Ordered Sig/Owen Route Start Time Stop Time Status Last Admin Dose Admin Ceftriaxone Sodium 50 ml @ 100 mls/hr ONCE ONCE IV 01/30/25 10:15 01/30/25 10:44 DC 01/30/25 10:20 100 MLS/HR Clindamycin Phosphate 50 ml @ 50 mls/hr ONCE ONCE IV 01/30/25 10:15 01/30/25 11:14 DC 01/30/25 11:11 50 MLS/HR Sodium Chloride 500 ml @ 500 mls/hr Q1H ONCE IV 01/30/25 10:15 01/30/25 11:14 DC 01/30/25 10:32 500 MLS/HR Sodium Chloride 1,000 ml @ 1,000 mls/hr Q1H ONCE IV 01/30/25 09:15 01/30/25 10:14 DC 01/30/25 09:48 1,000 MLS/HR Assessment/Plan Assessment/Plan Acute on chronic metabolic encephalopathy likely from sepsis / ongoing dementia ? Sepsis from decubitus right hip ulcer Acute on Chronic wound with possible tissue necrosis Stage 4-5 decubitus ulcer Lactic acidosis likely from sepsis Plan: - Obtain wound cultures to identify causative organisms - Initiate antibiotic Zosyn and doxycycline( for Gram-negative, Pseudomonas, anaerobes, MRSA coverage ) - Monitor for signs of systemic infection or sepsis - IVF - wound consult - CT abdominal pelvis showed no bony involvement - UA not collected - no surgical consult for now, we will consider if needed Dementia Brain aneurysm, Elevated ICP Patient has established dementia affecting her ability to communicate pain and discomfort effectively. Caregiver notes behavioral changes during wound care suggesting pain response despite cognitive impairment. Plan: - Continue current management - delirium precautions, - continue memantine - outpatient follow up with neurologist Hypokalemia - Repleting - Monitor lab PUD PPX Protonix DVT PPX Lovenox Cardiac diet Goals of care discussed with the patient for more than 27 minutes: Full code status Case discussed with Dr. Pettit, patient and nurse Plan discussed with: Patient, Daughter My Orders Orders - KERWIN HORNER RESIDENT Procedure Category Date Status Time Admit ADMIT 01/30/25 Transmitted 13:17 Allergies MILA 01/30/25 In Process 13:17 Code Status CODE 01/30/25 Transmitted 13:17 2 Gm Sodium Diet DIET 01/30/25 Transmitted Lunch Sodium Chloride Lock PHA 01/30/25 In Process (Saline Lock Ns) 14:00 Ondansetron Hcl PHA 01/30/25 In Process (Zofran) 13:30 Enoxaparin Sodium PHA 01/31/25 In Process (Lovenox) 10:00 Complete Blood Count LAB 01/31/25 Verified 04:00 Comprehensive LAB 01/31/25 Verified Metabolic Panel 04:00 Condition: Fair MILA 01/30/25 In Process 13:17 Acetaminophen Tablet PHA 01/30/25 In Process (Tylenol Tablet) 13:30 Nitroglycerin PHA 01/30/25 In Process Sublingual (Ntrostat 13:30 Oxygen By Nasal RT 01/30/25 Transmitted Cannula 13:17 Stat Ekg For Chest MILA 01/30/25 In Process Pain 13:17 Notify Of Changes MILA 01/30/25 In Process From Base 13:17 [employer] Room Servicer For [facility] 01/30/25 In Process 24 Hours 13:17 Emergency Dysrhythmia MILA 01/30/25 In Process Protocol 13:17 Rhythm Strips Once [facility] 01/30/25 In Process Every Shift 13:17 Wound Culture W/ Gs JUNAID 01/30/25 Logged 13:17 * Wound Consult CONS 01/30/25 Transmitted Mrsa Screen JUNAID 01/30/25 Logged 13:17 Piperacillin-Tazob PHA 01/30/25 In Process 3.375gm (Zosyn 3.375g 18:00 Doxycycline PHA 01/30/25 In Process 100mg/100ml 13:30 Morphine Sulfate PHA 01/30/25 In Process Injection 13:45 Pantoprazole PHA 01/30/25 Logged (Protonix) 13:45 B-Type Natriuretic LAB 01/30/25 Logged Peptide 13:37 Levothyroxine Tablet PHA 01/31/25 Transmitted (Synthroid Tablet) 10:00 Memantine Tablet PHA 01/30/25 Transmitted (Namenda Tablet) 22:00 Midodrine Tablet PHA 01/31/25 Transmitted (Proamatine Tablet) 10:00 Oxybutynin Chloride PHA 01/30/25 Transmitted Tablet (Ditropan Tab 22:00 Potassium Effervesent PHA 01/30/25 Verified Tab (Klor-Con/Ef) 13:45 Visit Coding STANDARD RES Billing Provider: BARB PETTIT MD Date of Service if different f: Jan 30, 2025 Common Visit Codes: 35426-KCAAFZA INP/OBS CARE (HIGH) Secondary Visit Codes: 53318-[id number] CARE PLAN 30 MINUTES KERWIN HORNER RESIDENT Jan 30, 2025 13:42 BARB PETTIT MD Jan 31, 2025 21:59
[2025-01-30] MEDS ORDERED: MORPHINE SULFATE 4 MG/ML SYR/VIAL IV PRN (13:45)
[2025-01-30] MEDS: SODIUM CHLOR 0.9% PF (SALINE LOCK) 10ML VIAL/SYR IV SCH (14:00)
[2025-01-30] MEDS: DOXYCYCLINE 100MG/100ML 100 ML IV SCH (14:14)
[2025-01-30] MEDS: PANTOPRAZOLE 40 MG/10 ML VIAL INJ IV SCH (14:29)
[2025-01-30] MEDS: POTASSIUM EFFERVESENT TAB 25 MEQ PO ONE (14:31)
[2025-01-30] MEDS: HYDROcodone-ACET 5/325MG TAB PO PRN (15:21)
[2025-01-30] MEDS: PIPERACILLIN-TAZOB 3.375GM 100 ML IV SCH (18:43)
[2025-01-30 19:20] VITALS: PULSE 94; RESP 20; O2SAT 98
[2025-01-30] MEDS: MEMANTINE HCL 5 MG TAB PO SCH (22:27)
[2025-01-30] MEDS: OXYBUTYNIN CHL 5 MG TAB PO SCH (22:27)
[2025-01-31 07:03] LABS: Hematocrit 34.7 % (36.0-46.0); Hemoglobin 11.6 g/dL (12.2-16.2); Mean Corpuscular Hemoglobin 29.3 pg (28.0-32.0); Mean Corpuscular Volume 87.2 fL (80.0-100.0); Nucleated Red Blood Cells % 0.1 %
[2025-01-31 07:32] LABS: Alanine Aminotransferase 19 U/L (7-40); Anion Gap 10 (5-15); BUN/Creatinine Ratio 19.0 (10.0-20.0); Carbon Dioxide 23 mmol/L (20-31); Glucose 85 mg/dL (74-106); Potassium 3.7 mmol/L (3.5-5.1); Sodium 141 mmol/L (136-145)
[2025-01-31 07:33] LABS: Albumin 3.0 g/dL (3.2-4.8); Alkaline Phosphatase 29 U/L (46-116); Bilirubin, Total 0.5 mg/dL (0.2-1.0); Blood Urea Nitrogen 8 mg/dL (9-23); Calcium 8.5 mg/dL (8.7-10.4); Chloride 108 mmol/L (98-107); Total Protein 5.3 g/dL (5.7-8.2)
[2025-01-31] MEDS ORDERED: SODIUM CHLORIDE 0.9% 1,000 ML IV SCH (08:45)
[2025-01-31 09:35] LABS: INR 1.16 (0.9-1.15); Partial Thromboplastin Time 32.2 SEC (24.5-34.5); Prothrombin Time 12.1 sec (9.3-11.8)
[2025-01-31 10:44] LABS: Magnesium 1.8 mg/dL (1.6-2.6)
[2025-01-31 11:53] VITALS: PULSE 72; RESP 19; O2SAT 95
[2025-01-31] MEDS: Ensure HIGH Protein Chocolate 8oz Bottle PO SCH (12:00)
[2025-01-31] MEDS: LEVOTHYROXINE SODIUM 112 MCG TAB PO SCH (13:11)
[2025-01-31] MEDS: MIDODRINE HCL 10 MG TAB PO SCH (13:11)
[2025-01-31] MEDS: ENOXAPARIN SOD 40 MG/0.4 ML SYRINGE SC SCH (13:12)
[2025-01-31] MEDS: PANTOPRAZOLE 40 MG/10 ML VIAL INJ IV SCH (13:12)
[2025-01-31] MEDS ORDERED: CEFEPIME 1GM/50ML 50 ML IV SCH (14:00)
[2025-01-31 14:14] VITALS: BP 92/42; PULSE 90; RESP 16; TEMP 99.3; O2SAT 98
[2025-01-31 14:43] VITALS: BP 92/42; PULSE 90; RESP 19; TEMP 99.3; O2SAT 98
--- NOTE | 2025-01-31 14:48 | DVH ---
History: Right hip wound and sacral wound Comparison Study: None TECHNIQUE: Multidetector spiral CT of the pelvis was performed from iliac crests to pubic symphysis. 100 cc of intravenous contrast was administered during this examination. Portal venous imaging was obtained. Axial, coronal and sagittal multiplanar reformats were performed by the technologist on a separate workstation. Radiation Dose : CT Dose: CTDI volume is 9.46 mGy. Dose-length product is 415.79 mGy*cm FINDINGS: Large deep ulcer overlying the right greater trochanter approaching bone. Periosseous surface appears slightly irregular without obvious erosions. Soft tissue thickening overlying the sacrococcygeal junction and coccyx without obvious ulcer on CT. No erosive bony changes. Marked stool filled distention of the rectum measuring up to 8.8 cm in diameter. Paul catheter in-situ. IMPRESSION: Large deep ulcer overlying the right greater trochanter approaching bone with some irregularity of the periosteal surface, suspicious for early osteomyelitis. MRI would more definitively assess. Soft tissue thickening overlying the sacrococcygeal junction and coccyx without obvious ulcer or CT evidence for osteomyelitis although again MRI would more definitively assess.
[2025-01-31] MEDS: SODIUM CHLORIDE 0.9% 250 ML IV ONE (15:40)
[2025-01-31] MEDS ORDERED: VANCOMYCIN PER PHARMACY 0 MG IV SCH (15:45)
[2025-01-31 15:57] LABS: Free T4 (Free Thyroxine) 1.52 ng/dL (0.89-1.76)
[2025-01-31] MEDS: SODIUM CHLORIDE 0.9% 1,000 ML IV SCH (16:28)
[2025-01-31] MEDS ORDERED: ATOR20TA PO (16:39)
[2025-01-31] MEDS ORDERED: ACET250T20 PO (16:39)
[2025-01-31] MEDS: VANCOMYCIN 750MG KIT 100 ML IV ONE (16:44)
[2025-01-31 16:49] VITALS: BP 101/44; PULSE 95; RESP 18; TEMP 98.5; O2SAT 96
--- NOTE | 2025-01-31 18:38 | DVHINCON2 ---
Consultation - Surgical Date Seen: Jan 31, 2025 Referring Physician Reason for Consultation Pressure ulcers on right gluteal/upper thigh area and sacral area History of Present Illness History of Present Illness Mrs. Burns is a 69-year-old female, bed-bound and nonverbal. I was consulted due to pressure wounds to the right gluteal/upper thigh area and sacral area. Past Medical/Surgical History Past Medical/Surgical History Medical History - Aneurysm in brain - Atherosclerosis - Dementia - Osteoporosis - Thyroid condition Surgical History - Lumbar puncture performed recently, which increased intracranial pressure Family and Social History Family and Social History Family history noncontributory Allergies and medications Allergies: Coded Allergies: NO KNOWN ALLERGIES (Unverified , 11/13/21) Home Meds Active Scripts Sulfamethoxazole W/Trimethopri (Bactrim Ds Tablet) 1 Tab Tb, 1 TAB PO BID for 10 Days, #20 TAB Prov:DARION SAVAGE 07/16/23 Hydrocodone-Acetaminophen (Hydrocodone Bitartrate/AC 5-325 mg) 1 Tab Tab, 1 TAB PO Q6HR PRN, #30 TAB Prov:HINA AGEE MD 12/15/22 Ibuprofen (Ibuprofen) 600 Mg Tab, 1 TAB PO TID, #30 TAB Prov:MICHAEL CHRISTY 11/13/21 Reported Medications Acetazolamide (Acetazolamide) 250 Mg Tab, 100 MG PO BID for 30 Days, MG 0 Refills 01/31/25 Atorvastatin Calcium (Lipitor) 20 Mg Tab, 1 TAB PO DAILY, #90 TAB 1 Refill 01/31/25 Midodrine Hcl (Midodrine Hcl) 10 Mg Tab, 1 TAB PO DAILY 06/19/24 Memantine Hydrochloride (Memantine HCl) 5 Mg Tab, 1 TAB PO BID 06/19/24 Levothyroxine Sodium (Levothyroxine Sodium) 112 Mcg Tab, 1 TAB PO DAILY 06/19/24 Megestrol Acetate (Megestrol Acetate) 40 Mg Tab 12/13/22 Nitrofurantoin Monohyd Macro (Nitrofurantoin Monohydrat) 100 Mg Cap, 1 CAP PO BID 12/12/22 Alendronate Sodium (Alendronate Sodium) 70 Mg Tab, 1 TAB PO QWEEKLY 12/12/22 Citalopram Hydrobromide (Citalopram Hydrobromide) 20 Mg Tab, 1 TAB PO DAILY 12/12/22 Oxybutynin Chloride (Oxybutynin Chloride) 5 Mg Tab, 1 TAB PO BID 12/12/22 Review of systems Review of Systems: Deferred Examination Vital signs Vital Signs Date Time Temp Pulse Resp B/P (MAP) Pulse Ox O2 Delivery O2 Flow Rate FiO2 01/31/25 16:49 98.5 95 18 101/44 (63) 96 98.5 01/31/25 11:53 Room Air* 0 21 Medications Current Medications Medications (Trade) Dose Ordered Sig/Owen Route PRN Reason Start Time Stop Time Status Last Admin Enoxaparin Sodium (Lovenox) 40 mg DAILY SC 01/31/25 10:00 01/31/25 18:14 DC 01/31/25 13:12 Levothyroxine Sodium (Synthroid Tablet) 112 mcg DAILY PO 01/31/25 10:00 01/31/25 13:11 Memantine (Namenda Tablet) 5 mg BID PO 01/30/25 22:00 01/31/25 13:11 Midodrine (Proamatine Tablet) 10 mg DAILY PO 01/31/25 10:00 01/31/25 13:11 Oxybutynin Chloride (Ditropan Tablet) 5 mg BID PO 01/30/25 22:00 01/31/25 13:11 Pantoprazole Sodium (Protonix) 40 mg DAILY IV 01/31/25 10:00 01/31/25 13:12 Sodium Chloride 1,000 ml @ 50 mls/hr Q20H IV 01/31/25 08:45 01/31/25 14:18 DC Enteral Nutritional Formula (Ensure High Protein) 240 ml TIDWM PO 01/31/25 12:00 01/31/25 12:00 Vancomycin HCl 250 ml @ 250 mls/hr DAILY IV 02/01/25 10:00 01/31/25 15:42 DC Cefepime HCl 50 ml @ 12.5 mls/hr Q12HR IV 01/31/25 14:00 01/31/25 14:32 DC Metronidazole 100 ml @ 100 mls/hr Q8HR IV 01/31/25 14:00 01/31/25 15:39 Sodium Chloride 1,000 ml @ 30 mls/hr Q24H IV 01/31/25 12:30 01/31/25 16:28 Ergocalciferol (Vitamin D 50,000 Unit) 50,000 unit Q7D PO 01/31/25 14:30 Cefepime HCl 50 ml @ 12.5 mls/hr Q12H IV 01/31/25 18:00 Vancomycin HCl 0 ml @ 0 mls/hr PER PHARMACY IV 01/31/25 15:45 Vancomycin HCl 100 ml @ 100 mls/hr DAILY@1100 IV 02/01/25 11:00 Enoxaparin Sodium (Lovenox) 30 mg DAILY SC 02/01/25 10:00 Laboratory Labs Test 01/31/25 06:40 01/30/25 12:16 01/30/25 09:52 Range/Units White Blood Count 9.1 4.4-10.8 10^3/uL Red Blood Count 3.98 L 4.0-5.20 10^6/uL Hemoglobin 11.6 L 12.2-16.2 g/dL Hematocrit 34.7 L 36.0-46.0 % Mean Corpuscular Volume 87.2 80.0-100.0 fL Mean Corpuscular Hemoglobin 29.3 28.0-32.0 pg Mean Corpuscular Hemoglobin Concent 33.6 32.0-36.0 g/dL Red Cell Distribution Width 13.1 11.8-14.3 % Platelet Count 405 140-450 10^3/uL Mean Platelet Volume 8.1 6.9-10.8 fL Neutrophils (%) (Auto) 72.3 37.0-80.0 % Lymphocytes (%) (Auto) 18.8 10.0-50.0 % Monocytes (%) (Auto) 6.1 0.0-12.0 % Eosinophils (%) (Auto) 2.1 0.0-7.0 % Basophils (%) (Auto) 0.7 0.0-2.0 % Neutrophils # (Auto) 6.5 1.6-8.6 10 ^3/uL Lymphocytes # (Auto) 1.7 0.4-5.4 10 ^3/uL Monocytes # (Auto) 0.6 0-1.3 10 ^3/uL Eosinophils # (Auto) 0.2 0-0.8 10 ^3/uL Basophils # (Auto) 0.1 0-0.2 10 ^3/uL Nucleated Red Blood Cells 0.1 % Erythrocyte Sedimentation Rate 37 H 0-20 mm/hr Prothrombin Time 12.1 H 9.3-11.8 sec Prothrombin Time INR 1.16 H 0.9-1.15 Activated Partial Thromboplast Time 32.2 24.5-34.5 SEC Sodium Level 141 136-145 mmol/L Potassium Level 3.7 3.5-5.1 mmol/L Chloride Level 108 H 98-107 mmol/L Carbon Dioxide Level 23 20-31 mmol/L Anion Gap 10 5-15 Blood Urea Nitrogen 8 L 9-23 mg/dL Creatinine 0.42 L 0.550-1.02 mg/dL Glomerular Filtration Rate Calc 105 >90 mL/min BUN/Creatinine Ratio 19.0 10.0-20.0 Serum Glucose 85 74-106 mg/dL Hemoglobin A1c 5.1 <5.7 % A1C Calcium Level 8.5 L 8.7-10.4 mg/dL Magnesium Level 1.8 1.6-2.6 mg/dL Total Bilirubin 0.5 0.2-1.0 mg/dL Aspartate Amino Transferase (AST) 18 13-40 U/L Alanine Aminotransferase (ALT) 19 7-40 U/L Alkaline Phosphatase 29 L 46-116 U/L Creatine Kinase 67 34-145 U/L C-Reactive Protein High Sensitivity 2.81 H <1.0 mg/dL Total Protein 5.3 L 5.7-8.2 g/dL Albumin 3.0 L 3.2-4.8 g/dL Vitamin B12 Level 540 211-911 pg/mL Vitamin D 25-Hydroxy 27.8 L 30.0-100 ng/mL Thyroid Stimulating Hormone (TSH) 0.50 L 0.55-4.78 uIU/mL Free Thyroxine (T4) Calculated 1.52 0.89-1.76 ng/dL Total Triiodothyronine (TT3) 0.94 0.60-1.81 ng/mL Lactic Acid Level 1.6 0.4-2.0 mmol/L B-Type Natriuretic Peptide 31.44 0-100 pg/mL Microbiology Date/Time Source Procedure Growth Status 01/30/25 13:59 Nose MRSA Screen - Final Complete 01/30/25 10:00 Blood Blood Culture - Preliminary NO GROWTH AFTER 24 HOURS OF INCUBATION. Resulted Examination: GENERAL:Abnormal (Nonverbal), SKIN:Abnormal (Right lateral glu teal/upper thigh area with stage III decubitus ulcer approximately 1 cm in diameter and 2-3 cm deep, with fibrinous tissue at base, no pus, no drainage, no necrosis, no erythema, no fluctuance. Sacral stage II ulcer without erythema/edema/pus/drainage/necrosis it has some surrounding ecchymosis) Problem List/Assessment/Plan Problems: (1) Sacral decubitus ulcer, stage II (2) Decubitus ulcer of back Assessment and Plan Mrs. Burns is a 69-year-old female with history of dementia nonverbal, also nonambulatory. I was consulted due to pressure wounds to the sacral area in the right gluteal/upper thigh area. Sacral ulcer is a stage II, area affected this a proximally 4-5 cm in diameter and noninfected. The right gluteal/upper thigh ulcer is stage III with fibrinous tissue at base but without signs of infection, it is a proximally 1 cm in diameter and 2-3 cm deep with fibrinous base. No surgical management indicated. 1. Continue local care to both ulcers. For sacral ulcer can apply Medihoney and covered with pressure pad with frequent offloading 2. For right gluteal ulcer, continue with packing strips, apply Santyl at base I will sign off, please call with any questions or concerns Plan discussed with Plan discussed with: Other (Nurse and primary team) Visit Coding Surgery Date of Service if different f: Jan 31, 2025 Billing Provider: MIKEY DELACRUZ MD Surgery Visit Codes: 02443 - INP CONSULT <110 MIN MIKEY DELACRUZ MD Jan 31, 2025 18:38
[2025-01-31] MEDS: ERGOCALCIFEROL 50,000 UNIT(1.25MG) CAP PO SCH (18:55)
[2025-01-31] MEDS: CEFEPIME 2GM/50ML NS 50 ML IV SCH (18:56)
[2025-01-31 20:00] VITALS: PULSE 95; RESP 18; O2SAT 95
--- NOTE | 2025-01-31 20:37 | DVHPNRES ---
Progress Note Date Seen: Jan 31, 2025 Resident Creating Document: EVE MIRANDA RESIDENT Has the PT tested + for MRSA If YES, has PT been informed?: No Medical Necessity Reason Pt with a Central, PICC or Fol: No Subjective Review of Systems PHI: Skye Earl is a 69-year-old female, with a history of dementia, osteoporosis, hypothyroidism, brain aneurysm, hydrocephalus, bed-bound and non- verbal. The patient was brought by family member to the [facility] with chief complain of worsening of right hip and sacral wound. The wound initially started in mid-to-late September and has followed a pattern of opening and closing over time. The caregiver reports that while the wound appears to have healed on the surface, it has not healed internally and has progressed to form what appears to be a deep cavity with black tissue visible inside, along with some yellow and red tissue. The wound causes pain during cleaning and wiping, which is evident despite the patient's dementia. She also has an aneurysm in her brain and recently underwent a lumbar puncture, which reportedly increased her intracranial pressure. The caregiver mentions the patient has been experiencing increased brain pressure for which patient was started on acetazolamide. In the ED the patient was evaluated and examined, labs showed: Lactic acid 2.6, WBC 9.1, tachypneic and tachycardic. The patient was admitted for further diagnosed and manangement. Medical History: Aneurysm in brain, Atherosclerosis, Dementia, Osteoporosis, hypothyroidism, hydrocephalus. Surgical History: Lumbar puncture performed recently, which increased intracranial pressure Social History: Living Situation: Lives with caregiver who works at the facility Caregiving Resources: Primary caregiver is working on obtaining home health services, no current home health aide or social welfare research worker in place Medications and Supplements: levothyroxine 112 mcg, midodrine HCL 10 mg, memantine HCl 10 mg, Megestrol acetate 40 mg, oxybutynin 5 mg, vitamin D3 5000, alendronate sodium 70 mg, cyanocobalamin, Pepcid 40 mg Hospital course: On 01/31/25, the patient was examined and evaluated at bedside. The patient's VS, labs and chart was reviewed. The patient is non verbal, information was obtain from daniel, who is the patient's caregiver and POA. The case was discussed with family member that confirmed code status as: Chemical code only. Also, requested evaluation for hospice placement. Surgical consult was placed. Surgical team recommended no surgical intervention at this time. Social consult was placed. We will continue following the progress of this patient. ROS: General: Negative for fever, bedboud, non verbal/ Neurological: Patient has dementia affecting baseline mental status. Objective vital signs Vital Sign Date Time Temp Pulse Resp B/P (MAP) Pulse Ox O2 Delivery O2 Flow Rate FiO2 01/31/25 16:49 98.5 95 18 101/44 (63) 96 98.5 01/31/25 14:43 Room Air* 0 21 Total Intake and Output 01/30/25 01/30/25 01/31/25 15:00 23:00 07:00 Intake Total 100 ml 200 ml Balance 100 ml 200 ml medications Current Medications Medications Dose Ordered Sig/Owen Route Start Time Stop Time Status Last Admin Dose Admin Sodium Chloride 10 ml Q8HR IV 01/30/25 14:00 01/31/25 15:44 10 ML Ondansetron HCl 4 mg Q4HP PRN IV 01/30/25 13:30 Acetaminophen 650 mg Q6HP PRN PO 01/30/25 13:30 Nitroglycerin 0.4 mg Q5MINP PRN SL 01/30/25 13:30 Morphine Sulfate 2 mg Q30M PRN IV 01/30/25 13:45 Levothyroxine Sodium 112 mcg DAILY PO 01/31/25 10:00 01/31/25 13:11 112 MCG Memantine 5 mg BID PO 01/30/25 22:00 01/31/25 13:11 5 MG Midodrine 10 mg DAILY PO 01/31/25 10:00 01/31/25 13:11 10 MG Oxybutynin Chloride 5 mg BID PO 01/30/25 22:00 01/31/25 13:11 5 MG Acetaminophen/ Hydrocodone Bitart 1 tab Q6HPRN PRN PO 01/30/25 15:00 01/30/25 15:21 1 TAB Pantoprazole Sodium 40 mg DAILY IV 01/31/25 10:00 01/31/25 13:12 40 MG Enteral Nutritional Formula 240 ml TIDWM PO 01/31/25 12:00 01/31/25 18:00 240 ML Metronidazole 100 ml @ 100 mls/hr Q8HR IV 01/31/25 14:00 01/31/25 15:39 100 MLS/HR Sodium Chloride 1,000 ml @ 30 mls/hr Q24H IV 01/31/25 12:30 01/31/25 16:28 30 MLS/HR Ergocalciferol 50,000 unit Q7D PO 01/31/25 14:30 01/31/25 18:55 50,000 UNIT Cefepime HCl 50 ml @ 12.5 mls/hr Q12H IV 01/31/25 18:00 01/31/25 18:56 12.5 MLS/HR Vancomycin HCl 0 ml @ 0 mls/hr PER PHARMACY IV 01/31/25 15:45 Vancomycin HCl 100 ml @ 100 mls/hr DAILY@1100 IV 02/01/25 11:00 Enoxaparin Sodium 30 mg DAILY SC 02/01/25 10:00 Examination General Appearance: cachetic, pale, Alert, non-verbal, bed-bound, No acute distress HEENT: Atraumatic, PERRLA, EOMI, Mucous membr. moist/pink Respiratory: Normal air movement, normal breathing sounds. Cardiovascular: Regular rate, Normal S1, Normal S2, No murmurs, no chest pain on palpation of the chest. Abdominal: Normal bowel sounds, Soft, No tenderness, No hepatospenomegaly, No masses Extremities: No clubbing, No cyanosis, No edema, Normal pulses, No tenderness/swelling Skin: Right hip: There is a deep, circular wound grade 3-4, of approximate 3 cm deep, with yellowish base, discharging serosanguineus fluid. Sacral area: 1 sacral wound, grade 2-3, secreting serosanguineos fluid. Neuro: unable to test Psych/Mental Status: alert, non-verbal laboratory and microbiology Laboratory Tests 01/31/25 06:40 Test 01/31/25 06:40 Range/Units Serum Glucose 85 74-106 mg/dL Microbiology Date/Time Source Procedure Growth Status 01/30/25 13:59 Nose MRSA Screen - Final Complete 01/30/25 10:00 Blood Blood Culture - Preliminary NO GROWTH AFTER 24 HOURS OF INCUBATION. Resulted Problem List/Assessment/Plan Problem List/Assessment/Plan #Sepsis due to decubitus right hip ulcer grade 4-5 (POA) #Acute on chronic metabolic encephalopathy likely from sepsis / ongoing dementia #Acute on chronic decubitus sacral ulcer stage 3-4 with possible tissue necrosis Lactic acidosis likely from sepsis Obtain wound cultures to identify causative organisms Initiate antibiotic Zosyn and doxycycline( for Gram-negative, Pseudomonas, anaerobes, MRSA coverage ) Monitor for signs of systemic infection or sepsis IVF wound consult CT abdominal pelvis showed no bony involvement UA surgical consult #Chronic Senile Dementia Brain aneurysm, Elevated ICP delirium precautions, continue memantine outpatient follow up with neurologist #Acute Hypokalemia - Repleting - Monitor lab #Protein-energy malnutrition of moderate degree Nutrition consult BMI: 17.0 #Chronic Hypothyroidism Levotiroxine 50mcg po dialy Diet Cardiac diet DVT prophylaxis: Lovenox GI prophylaxis: Protonix Code status: chem code Disposition: [facility] PCP: Dr. Garcia Patient's status and plan discussed patient's POA (Daugther) >30min. Case discussed with Dr. Salamanca Plan discussed with: Daughter My Orders My Orders Orders - EVE MIRANDA RESIDENT Procedure Category Date Status Time Pantoprazole PHA 01/31/25 In Process (Protonix) 10:00 Insert Paul Catheter [facility] 01/31/25 In Process 10:09 Urine Bacterial JUNAID 01/31/25 In Process Culture 12:[address] 01/31/25 Resulted 12:17 Metronidazole PHA 01/31/25 In Process 500mg/100ml (Flagyl 14:00 Complete Blood Count LAB 02/01/25 Verified 04:00 Basic Metabolic Panel LAB 02/01/25 Verified 04:00 * Fire Investigation Manager CONS 01/31/25 Transmitted Consult Sodium Chloride 0.9% PHA 01/31/25 In Process 12:30 Vancomycin Per PHA 01/31/25 In Process Pharmacy 15:45 Vancomycin 750mg Kit PHA 02/01/25 In Process (Vancomycin Hcl) 11:00 Vancomycin,Trough LAB 02/03/25 Verified 10:00 Vancomycin Per [facility] 02/03/25 In Process Pharmacy Protoc 11:00 Creatinine LAB 02/02/25 Verified 04:00 Creatinine LAB 02/03/25 Verified 04:00 Apply: MILA 01/31/25 In Process 18:48 Foam Cradle To ORDERS 01/31/25 Transmitted Bilateral Feet 18:48 Sepsis reassessment post fluid Is the fluid challenge complet: Yes Date of Reassessment: Jan 30, 2025 Time of Reassessment: 1055 Blood Culture Time: 951 Time Antibiotics Given: 1020 Systolic BP: 111 Diastolic BP: 61 Blood Pressure Mean: 78 Respiration: 26 Respiratory Effort: Non-Labored Respiratory Pattern: Tachypnea Oxygen Saturation: 96 Pulse Rate: 104 Pulse Location: Radial Pulse Strength: Normal Pulse Assessment Method: Palpation Pulse Rhythm: Regular Capillary Refill: < 3 seconds Heart Sounds: S1 & S2 Breath sounds: Clear Skin Moisture: Dry Skin Tugor: WNL Skin Color: WNL Visit Coding STANDARD RES Billing Provider: TRINA PHELPS MD Date of Service if different f: Jan 31, 2025 Common Visit Codes: [id number] INP/OBS CARE(HIGH) EVE MIRANDA RESIDENT Jan 31, 2025 20:37 SOCORRO FRAIRE RESIDENT Feb 03, 2025 16:39
[2025-01-31 21:00] VITALS: BP 126/65; PULSE 91; RESP 14; TEMP 98.6; O2SAT 98
[2025-02-01] VITALS (8 sets, daily range): BP systolic 91–138; BP diastolic 52–78; PULSE 96–120; RESP 16–20; TEMP 98.2–100; O2SAT 95–98
[2025-02-01 06:18] LABS: Hematocrit 34.9 % (36.0-46.0); Hemoglobin 11.6 g/dL (12.2-16.2); Mean Corpuscular Hemoglobin 29.4 pg (28.0-32.0); Mean Corpuscular Volume 88.5 fL (80.0-100.0); Nucleated Red Blood Cells % 0.0 %
[2025-02-01 06:34] LABS: Potassium 3.7 mmol/L (3.5-5.1); Sodium 140 mmol/L (136-145)
[2025-02-01 06:35] LABS: Anion Gap 9 (5-15); Calcium 8.7 mg/dL (8.7-10.4); Carbon Dioxide 22 mmol/L (20-31)
[2025-02-01 06:40] LABS: BUN/Creatinine Ratio 15.8 (10.0-20.0); Glucose 80 mg/dL (74-106)
[2025-02-01 06:46] LABS: Blood Urea Nitrogen 6 mg/dL (9-23); Chloride 109 mmol/L (98-107)
[2025-02-01] MEDS: ENOXAPARIN SOD 30 MG/0.3 ML SYRINGE SC SCH (09:26)
[2025-02-01] MEDS ORDERED: VANCOMYCIN 1GM/250ML KIT 250 ML IV SCH (10:00)
[2025-02-01] MEDS: VANCOMYCIN 750MG KIT 100 ML IV SCH (11:01)
--- NOTE | 2025-02-01 18:25 | DVHPNRES ---
Progress Note Date Seen: Feb 01, 2025 Resident Creating Document: EVE MIRANDA RESIDENT Has the PT tested + for MRSA If YES, has PT been informed?: No Medical Necessity Reason Pt with a Central, PICC or Fol: No Subjective Review of Systems PHI: Skye Earl is a 69-year-old female, with a history of dementia, osteoporosis, hypothyroidism, brain aneurysm, hydrocephalus, bed-bound and non- verbal. The patient was brought by family member to the [facility] with chief complain of worsening of right hip and sacral wound. The wound initially started in mid-to-late September and has followed a pattern of opening and closing over time. The caregiver reports that while the wound appears to have healed on the surface, it has not healed internally and has progressed to form what appears to be a deep cavity with black tissue visible inside, along with some yellow and red tissue. The wound causes pain during cleaning and wiping, which is evident despite the patient's dementia. She also has an aneurysm in her brain and recently underwent a lumbar puncture, which reportedly increased her intracranial pressure. The caregiver mentions the patient has been experiencing increased brain pressure for which patient was started on acetazolamide. In the ED the patient was evaluated and examined, labs showed: Lactic acid 2.6, WBC 9.1, tachypneic and tachycardic. The patient was admitted for further diagnosed and manangement. Medical History: Aneurysm in brain, Atherosclerosis, Dementia, Osteoporosis, hypothyroidism, hydrocephalus. Surgical History: Lumbar puncture performed recently, which increased intracranial pressure Social History: Living Situation: Lives with caregiver who works at the facility Caregiving Resources: Primary caregiver is working on obtaining home health services, no current home health aide or social security specialist in place Medications and Supplements: levothyroxine 112 mcg, midodrine HCL 10 mg, memantine HCl 10 mg, Megestrol acetate 40 mg, oxybutynin 5 mg, vitamin D3 5000, alendronate sodium 70 mg, cyanocobalamin, Pepcid 40 mg Hospital course: On 01/31/25, the patient was examined and evaluated at bedside. The patient's VS, labs and chart was reviewed. The patient is non verbal, information was obtain from daughter, who is the patient's caregiver and POA. The case was discussed with family member that confirmed code status as: Chemical code only. Also, requested evaluation for hospice placement. Surgical consult was placed. Surgical team recommended no surgical intervention at this time. Social consult was placed. We will continue following the progress of this patient. ROS: General: Negative for fever, bedboud, non verbal/ Neurological: Patient has dementia affecting baseline mental status. On 02/01/2025, the patient was seen and examined by me at the bedside.Patient s nonverbal, surgical consult suggested patient does not need surgical treatment now. Awaiting hospice care placement. We will continue treating the patient for her hip ulcer with antibiotics ROS: General: Negative for fever, bed-bound, nonverbal neurological: Patient has dementia effecting baseline mental status Objective vital signs Vital Sign Date Time Temp Pulse Resp B/P (MAP) Pulse Ox O2 Delivery O2 Flow Rate FiO2 02/01/25 17:16 99.9 96 20 107/63 (78) 98 99.9 02/01/25 08:00 Room Air* 0 21 Total Intake and Output 01/31/25 01/31/25 02/01/25 15:00 23:00 07:00 Intake Total 50 ml 800 ml Output Total 200 ml 2552 ml Balance -150 ml -1752 ml medications Current Medications Medications Dose Ordered Sig/Owen Route Start Time Stop Time Status Last Admin Dose Admin Sodium Chloride 10 ml Q8HR IV 01/30/25 14:00 02/01/25 13:43 10 ML Ondansetron HCl 4 mg Q4HP PRN IV 01/30/25 13:30 Acetaminophen 650 mg Q6HP PRN PO 01/30/25 13:30 Nitroglycerin 0.4 mg Q5MINP PRN SL 01/30/25 13:30 Morphine Sulfate 2 mg Q30M PRN IV 01/30/25 13:45 Levothyroxine Sodium 112 mcg DAILY PO 01/31/25 10:00 02/01/25 09:26 112 MCG Memantine 5 mg BID PO 01/30/25 22:00 02/01/25 09:25 5 MG Midodrine 10 mg DAILY PO 01/31/25 10:00 02/01/25 09:25 10 MG Oxybutynin Chloride 5 mg BID PO 01/30/25 22:00 02/01/25 09:25 5 MG Acetaminophen/ Hydrocodone Bitart 1 tab Q6HPRN PRN PO 01/30/25 15:00 01/30/25 15:21 1 TAB Pantoprazole Sodium 40 mg DAILY IV 01/31/25 10:00 02/01/25 09:25 40 MG Enteral Nutritional Formula 240 ml TIDWM PO 01/31/25 12:00 02/01/25 18:01 240 ML Metronidazole 100 ml @ 100 mls/hr Q8HR IV 01/31/25 14:00 02/01/25 13:40 100 MLS/HR Sodium Chloride 1,000 ml @ 30 mls/hr Q24H IV 01/31/25 12:30 02/01/25 17:54 30 MLS/HR Ergocalciferol 50,000 unit Q7D PO 01/31/25 14:30 01/31/25 18:55 50,000 UNIT Cefepime HCl 50 ml @ 12.5 mls/hr Q12H IV 01/31/25 18:00 02/01/25 18:01 12.5 MLS/HR Vancomycin HCl 0 ml @ 0 mls/hr PER PHARMACY IV 01/31/25 15:45 Vancomycin HCl 100 ml @ 100 mls/hr DAILY@1100 IV 02/01/25 11:00 02/01/25 11:01 100 MLS/HR Enoxaparin Sodium 30 mg DAILY SC 02/01/25 10:00 02/01/25 09:26 30 MG Examination General Appearance: cachetic, pale, Alert, non-verbal, bed-bound, No acute distress HEENT: Atraumatic, PERRLA, EOMI, Mucous membr. moist/pink Respiratory: Normal air movement, normal breathing sounds. Cardiovascular: Regular rate, Normal S1, Normal S2, No murmurs, no chest pain on palpation of the chest. Abdominal: Normal bowel sounds, Soft, No tenderness, No hepatospenomegaly, No masses Extremities: No clubbing, No cyanosis, No edema, Normal pulses, No tenderness/swelling Skin: Right hip: There is a deep, circular wound grade 3-4, of approximate 3 cm deep, with yellowish base, discharging serosanguineus fluid. Sacral area: 1 sacral wound, grade 2-3, secreting serosanguineos fluid. Neuro: unable to test Psych/Mental Status: alert, non-verbal laboratory and microbiology Laboratory Tests 02/01/25 01:45 Test 02/01/25 01:45 Range/Units Serum Glucose 80 74-106 mg/dL Microbiology Date/Time Source Procedure Growth Status 01/31/25 10:18 Urine - [place] Urine Culture - Preliminary No growth Resulted 01/30/25 13:59 Nose MRSA Screen - Final Complete 01/30/25 10:00 Blood Blood Culture - Preliminary NO GROWTH AFTER 48 HOURS OF INCUBATION. 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 with possible tissue necrosis Lactic acidosis likely from sepsis Obtain wound cultures to identify causative organisms Initiate antibiotic Zosyn and doxycycline( for Gram-negative, Pseudomonas, anaerobes, MRSA coverage ) Monitor for signs of systemic infection or sepsis IVF wound consult CT abdominal pelvis showed no bony involvement UA surgical consult suggested no intervention now #Chronic Senile Dementia Brain aneurysm, Elevated ICP delirium precautions, continue memantine outpatient follow up with neurologist #Acute Hypokalemia - Repleting - Monitor lab #Protein-energy malnutrition of moderate degree Nutrition consult BMI: 17.0 #Chronic Hypothyroidism Levotiroxine 50mcg po dialy Diet Cardiac diet DVT prophylaxis: Lovenox GI prophylaxis: Protonix Code status: full code Disposition: [facility] PCP: Dr. Garcia Patient's status and plan discussed patient's POA (Daugther) >30min. Case discussed with Dr. Salamanca Plan discussed with: Other (rn) My Orders My Orders Orders - EVE MIRANDA RESIDENT Procedure Category Date Status Time Apply: MILA 01/31/25 In Process 18:48 Foam Cradle To ORDERS 01/31/25 Transmitted Bilateral Feet 18:48 Creatinine LAB 02/02/25 Verified 04:00 * Tool Rental Technician CONS 02/01/25 Transmitted Consult Dietary Evaluation Review Comments: Nutrition Recommendation: 1) Graeme 1 pk BID, MVI w/ minerals 1 tab daily, VitC 500mg BID, Zinc sulfate 220mg BID x 10 days 2) Monitor PO intake, lab values, weight trend, and I/O Expected Outcomes/Goals: Wound to improve FU 3-5 days Sepsis reassessment post fluid Is the fluid challenge complet: Yes Date of Reassessment: Jan 30, 2025 Time of Reassessment: 1055 Blood Culture Time: 0952 Time Antibiotics Given: 1020 Systolic BP: 111 Diastolic BP: 61 Blood Pressure Mean: 78 Respiration: 26 Respiratory Effort: Non-Labored Respiratory Pattern: Tachypnea Oxygen Saturation: 96 Pulse Rate: 104 Pulse Location: Radial Pulse Strength: Normal Pulse Assessment Method: Palpation Pulse Rhythm: Regular Capillary Refill: < 3 seconds Heart Sounds: S1 & S2 Breath sounds: Clear Skin Moisture: Dry Skin Tugor: WNL Skin Color: WNL Visit Coding STANDARD RES Billing Provider: TRINA PHELPS MD Date of Service if different f: Feb 01, 2025 Common Visit Codes: [id number] INP/OBS CARE(HIGH) EVE MIRANDA RESIDENT Feb 01, 2025 18:25 SOCORRO FRAIRE RESIDENT Feb 03, 2025 16:45
[2025-02-02] VITALS (10 sets, daily range): BP systolic 94–120; BP diastolic 46–69; PULSE 94–114; RESP 16–20; TEMP 98.4–99.8; O2SAT 92–98
[2025-02-02 06:50] LABS: Hematocrit 33.9 % (36.0-46.0); Hemoglobin 11.6 g/dL (12.2-16.2); Mean Corpuscular Hemoglobin 29.7 pg (28.0-32.0); Mean Corpuscular Volume 87.0 fL (80.0-100.0); Nucleated Red Blood Cells % 0.1 %
[2025-02-02 06:51] LABS: Sodium 138 mmol/L (136-145)
[2025-02-02 06:52] LABS: Anion Gap 10 (5-15); Carbon Dioxide 21 mmol/L (20-31)
[2025-02-02 06:57] LABS: Glucose 82 mg/dL (74-106)
[2025-02-02 07:33] LABS: BUN/Creatinine Ratio 17.0 (10.0-20.0); Blood Urea Nitrogen 8 mg/dL (9-23); Calcium 8.1 mg/dL (8.7-10.4); Chloride 107 mmol/L (98-107)
[2025-02-02 07:34] LABS: Potassium 4.6 mmol/L (3.5-5.1)
[2025-02-02] MEDS: SODIUM CHLORIDE 0.9% 500 ML IV ONE (10:50)
[2025-02-02] MEDS: ACETAMINOPHEN 325 MG TAB PO SCH (12:00)
[2025-02-02] MEDS: MIDODRINE HCL 10 MG TAB PO SCH (12:16)
[2025-02-02] MEDS: SODIUM CHLORIDE 0.9% 1,000 ML IV SCH (12:18)
--- NOTE | 2025-02-02 15:57 | DVHPNRES ---
Progress Note Date Seen: Feb 02, 2025 Resident Creating Document: EVE MIRANDA RESIDENT Has the PT tested + for MRSA If YES, has PT been informed?: No Medical Necessity Reason Pt with a Central, PICC or Fol: No Subjective Review of Systems PHI: Skye Earl is a 69-year-old female, with a history of dementia, osteoporosis, hypothyroidism, brain aneurysm, hydrocephalus, bed-bound and non- verbal. The patient was brought by family member to the [facility] with chief complain of worsening of right hip and sacral wound. The wound initially started in mid-to-late September and has followed a pattern of opening and closing over time. The caregiver reports that while the wound appears to have healed on the surface, it has not healed internally and has progressed to form what appears to be a deep cavity with black tissue visible inside, along with some yellow and red tissue. The wound causes pain during cleaning and wiping, which is evident despite the patient's dementia. She also has an aneurysm in her brain and recently underwent a lumbar puncture, which reportedly increased her intracranial pressure. The caregiver mentions the patient has been experiencing increased brain pressure for which patient was started on acetazolamide. In the ED the patient was evaluated and examined, labs showed: Lactic acid 2.6, WBC 9.1, tachypneic and tachycardic. The patient was admitted for further diagnosed and manangement. Medical History: Aneurysm in brain, Atherosclerosis, Dementia, Osteoporosis, hypothyroidism, hydrocephalus. PMH: Surgical History: Lumbar puncture performed recently, which increased intracranial pressure Social History: Living Situation: Lives with caregiver who works at the facility Caregiving Resources: Primary caregiver is working on obtaining home health services, no current home health aide or social studies teacher in place Medications and Supplements: levothyroxine 112 mcg, midodrine HCL 10 mg, memantine HCl 10 mg, Megestrol acetate 40 mg, oxybutynin 5 mg, vitamin D3 5000, alendronate sodium 70 mg, cyanocobalamin, Pepcid 40 mg Hospital course: On 01/31/25, the patient was examined and evaluated at bedside. The patient's VS, labs and chart was reviewed. The patient is non verbal, information was obtain from daughter, who is the patient's caregiver and POA. The case was discussed with family member that confirmed code status as: Chemical code only. Also, requested evaluation for hospice placement. Surgical consult was placed. Surgical team recommended no surgical intervention at this time. Social consult was placed. We will continue following the progress of this patient. On 02/01/2025, the patient was seen and examined by me at the bedside.Patient s nonverbal, surgical consult suggested patient does not need surgical treatment now. Awaiting hospice care placement. We will continue treating the patient for her hip ulcer with antibiotics. On 02/02/2025, the patient was seen and examined by me at the bedside. The patient's VS, labs and chart was reviewed. The patient BP has been in the low side, midriodine has been given and a NS 500cc bolus, with improvement in BP. The patient's daughter, who is the patient's caregiver and POA has requested hospice services. Social service was placed for hospice, corrections caseworker informed that the patient has been accepted in [facility]. The patient continue with IV antibiotics, fluids, wound care. Wound cultures showed gram positive cocci, the patient will continue with Vancomycin. We will continue providing follow up the progress of this patient closely. ROS: (the patient is non verbal, bedbound) General: Negative for fever, bed-bound, nonverbal neurological: Patient has dementia effecting baseline mental status. Objective vital signs Vital Sign Date Time Temp Pulse Resp B/P (MAP) Pulse Ox O2 Delivery O2 Flow Rate FiO2 02/02/25 14:31 99 16 106/56 (73) 02/02/25 13:00 99.1 98 99.1 02/02/25 08:15 Room Air* 0 21 Total Intake and Output 02/01/25 02/01/25 02/02/25 15:00 23:00 07:00 Intake Total 250 ml 530 ml 200 ml Output Total 850 ml 975 ml Balance 250 ml -320 ml -775 ml medications Current Medications Medications Dose Ordered Sig/Owen Route Start Time Stop Time Status Last Admin Dose Admin Sodium Chloride 10 ml Q8HR IV 01/30/25 14:00 02/02/25 14:06 10 ML Ondansetron HCl 4 mg Q4HP PRN IV 01/30/25 13:30 Nitroglycerin 0.4 mg Q5MINP PRN SL 01/30/25 13:30 Morphine Sulfate 2 mg Q30M PRN IV 01/30/25 13:45 Levothyroxine Sodium 112 mcg DAILY PO 01/31/25 10:00 02/02/25 09:49 112 MCG Memantine 5 mg BID PO 01/30/25 22:00 02/02/25 09:49 5 MG Oxybutynin Chloride 5 mg BID PO 01/30/25 22:00 02/02/25 09:50 5 MG Acetaminophen/ Hydrocodone Bitart 1 tab Q6HPRN PRN PO 01/30/25 15:00 01/30/25 15:21 1 TAB Pantoprazole Sodium 40 mg DAILY IV 01/31/25 10:00 02/02/25 09:53 40 MG Enteral Nutritional Formula 240 ml TIDWM PO 01/31/25 12:00 02/02/25 09:49 240 ML Metronidazole 100 ml @ 100 mls/hr Q8HR IV 01/31/25 14:00 02/02/25 14:06 100 MLS/HR Ergocalciferol 50,000 unit Q7D PO 01/31/25 14:30 01/31/25 18:55 50,000 UNIT Cefepime HCl 50 ml @ 12.5 mls/hr Q12H IV 01/31/25 18:00 02/02/25 06:27 12.5 MLS/HR Vancomycin HCl 0 ml @ 0 mls/hr PER PHARMACY IV 01/31/25 15:45 Vancomycin HCl 100 ml @ 100 mls/hr DAILY@1100 IV 02/01/25 11:00 02/02/25 10:53 100 MLS/HR Enoxaparin Sodium 30 mg DAILY SC 02/01/25 10:00 02/02/25 09:52 30 MG Midodrine 10 mg TID PO 02/02/25 11:15 02/02/25 12:16 10 MG Sodium Chloride 1,000 ml @ 50 mls/hr Q20H IV 02/02/25 11:15 02/02/25 12:18 50 MLS/HR Acetaminophen 650 mg Q6H PO 02/02/25 12:00 Examination General Appearance: cachetic, pale, Alert, non-verbal, bed-bound, No acute distress HEENT: Atraumatic, PERRLA, EOMI, Mucous membr. moist/pink Respiratory: Normal air movement, normal breathing sounds. Cardiovascular: Regular rate, Normal S1, Normal S2, No murmurs, no chest pain on palpation of the chest. Abdominal: Normal bowel sounds, Soft, No tenderness, No hepatospenomegaly, No masses Extremities: No clubbing, No cyanosis, No edema, Normal pulses, No tenderness/swelling Skin: Right hip: There is a deep, circular wound grade 3-4, of approximate 3 cm deep, with yellowish base, discharging serosanguineus fluid. Sacral area: 1 sacral wound, grade 2-3, secreting serosanguineos fluid. Neuro: unable to test Psych/Mental Status: alert, non-verbal laboratory and microbiology Laboratory Tests 02/02/25 05:48 Test 02/02/25 05:48 Range/Units Serum Glucose 82 74-106 mg/dL Microbiology Date/Time Source Procedure Growth Status 01/31/25 10:18 Urine - [place] Urine Culture - Final Complete 01/30/25 13:59 Nose MRSA Screen - Final Complete 01/30/25 10:00 Blood Blood Culture - Preliminary NO GROWTH AFTER 72 HOURS OF INCUBATION. Resulted Problem List/Assessment/Plan Problem List/Assessment/Plan #Sepsis due to decubitus right hip ulcer grade 4-5-present on admission #Acute on chronic metabolic encephalopathy likely from sepsis / ongoing dementia #Acute on chronic decubitus sacral ulcer stage 3-4 with possible tissue necrosis Lactic acidosis likely from sepsis Obtain wound cultures to identify causative organisms Initiate antibiotic Zosyn and doxycycline( for Gram-negative, Pseudomonas, anaerobes, MRSA coverage ) Monitor for signs of systemic infection or sepsis IVF wound consult CT abdominal pelvis showed no bony involvement UA surgical consult suggested no intervention now #Chronic Senile Dementia Brain aneurysm, Elevated ICP delirium precautions, continue memantine outpatient follow up with neurologist #Acute Hypokalemia - Repleting - Monitor lab #Protein-energy malnutrition of moderate degree Nutrition consult BMI: 17.0 #Chronic Hypothyroidism Levotiroxine 50mcg po dialy Diet Cardiac diet DVT prophylaxis: Lovenox GI prophylaxis: Protonix Code status: Chemical code only Disposition: [facility] PCP: Dr. Garcia Patient's status and plan discussed patient's POA (Daugther) >30min. Case discussed with Dr. Salamanca Plan discussed with: Daughter (Taylor) My Orders My Orders Orders - EVE MIRANDA RESIDENT Procedure Category Date Status Time Covid19 Antigen Giselle LAB 02/02/25 Logged Rapid Influenza A&B LAB 02/02/25 Logged 09:35 Complete Blood Count LAB 02/03/25 Verified 04:00 Basic Metabolic Panel LAB 02/03/25 Verified 04:00 Dietary Evaluation Review Comments: Nutrition Recommendation: 1) Graeme 1 pk BID, MVI w/ minerals 1 tab daily, VitC 500mg BID, Zinc sulfate 220mg BID x 10 days 2) Monitor PO intake, lab values, weight trend, and I/O Expected Outcomes/Goals: Wound to improve FU 3-5 days Sepsis reassessment post fluid Is the fluid challenge complet: Yes Date of Reassessment: Jan 30, 2025 Time of Reassessment: 1055 Blood Culture Time: 0952 Time Antibiotics Given: 1020 Systolic BP: 111 Diastolic BP: 61 Blood Pressure Mean: 78 Respiration: 26 Respiratory Effort: Non-Labored Respiratory Pattern: Tachypnea Oxygen Saturation: 96 Pulse Rate: 104 Pulse Location: Radial Pulse Strength: Normal Pulse Assessment Method: Palpation Pulse Rhythm: Regular Capillary Refill: < 3 seconds Heart Sounds: S1 & S2 Breath sounds: Clear Skin Moisture: Dry Skin Tugor: WNL Skin Color: WNL Visit Coding STANDARD RES Billing Provider: TRINA PHELPS MD Date of Service if different f: Feb 02, 2025 Common Visit Codes: [id number] INP/OBS CARE(HIGH) EVE MIRANDA RESIDENT Feb 02, 2025 15:57 SOCORRO FRAIRE RESIDENT Feb 03, 2025 16:56
[2025-02-03 01:00] VITALS: BP 120/62; PULSE 113; RESP 19; TEMP 99.7; O2SAT 97
[2025-02-03 05:00] VITALS: BP 105/56; PULSE 101; RESP 19; TEMP 99.6; O2SAT 96
[2025-02-03 06:37] LABS: Hematocrit 34.9 % (36.0-46.0); Mean Corpuscular Volume 87.4 fL (80.0-100.0); Nucleated Red Blood Cells % 0.1 %
[2025-02-03 06:40] LABS: Hemoglobin 11.6 g/dL (12.2-16.2); Mean Corpuscular Hemoglobin 29.1 pg (28.0-32.0)
[2025-02-03 06:46] LABS: Anion Gap 10 (5-15); Carbon Dioxide 22 mmol/L (20-31); Chloride 105 mmol/L (98-107); Potassium 3.6 mmol/L (3.5-5.1); Sodium 137 mmol/L (136-145)
[2025-02-03 06:48] LABS: Calcium 8.4 mg/dL (8.7-10.4)
[2025-02-03 06:52] LABS: BUN/Creatinine Ratio 29.3 (10.0-20.0); Blood Urea Nitrogen 12 mg/dL (9-23); Glucose 99 mg/dL (74-106)
[2025-02-03 09:00] VITALS: BP 104/61; PULSE 85; RESP 14; TEMP 97.9; O2SAT 98
[2025-02-03] MEDS: ENOXAPARIN SOD 40 MG/0.4 ML SYRINGE SC SCH (10:37)
[2025-02-03] MEDS: POTASSIUM EFFERVESENT TAB 25 MEQ PO ONE (10:38)
--- NOTE | 2025-02-03 12:12 | DVHDSRES ---
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 Present on admission Sacral area: A sacral wound, grade 2-3. Present on admission Labs/Diagnostic Data: Laboratory Results Test 02/03/25 10:24 02/03/25 05:06 01/31/25 06:40 01/30/25 12:16 Vancomycin Level Trough 4.8 ug/mL (5-10) White Blood Count 11.2 10^3/uL (4.4-10.8) Red Blood Count 4.00 10^6/uL (4.0-5.20) Hemoglobin 11.6 g/dL (12.2-16.2) Hematocrit 34.9 % (36.0-46.0) Mean Corpuscular Volume 87.4 fL (80.0-100.0) Mean Corpuscular Hemoglobin 29.1 pg (28.0-32.0) Mean Corpuscular Hemoglobin Concent 33.3 g/dL (32.0-36.0) Red Cell Distribution Width 13.2 % (11.8-14.3) Platelet Count 495 10^3/uL (140-450) Mean Platelet Volume 8.1 fL (6.9-10.8) Neutrophils (%) (Auto) 69.5 % (37.0-80.0) Lymphocytes (%) (Auto) 20.1 % (10.0-50.0) Monocytes (%) (Auto) 7.5 % (0.0-12.0) Eosinophils (%) (Auto) 2.2 % (0.0-7.0) Basophils (%) (Auto) 0.7 % (0.0-2.0) Neutrophils # (Auto) 7.8 10 ^3/uL (1.6-8.6) Lymphocytes # (Auto) 2.3 10 ^3/uL (0.4-5.4) Monocytes # (Auto) 0.8 10 ^3/uL (0-1.3) Eosinophils # (Auto) 0.3 10 ^3/uL (0-0.8) Basophils # (Auto) 0.1 10 ^3/uL (0-0.2) Nucleated Red Blood Cells 0.1 % Sodium Level 137 mmol/L (136-145) Potassium Level 3.6 mmol/L (3.5-5.1) Chloride Level 105 mmol/L (98-107) Carbon Dioxide Level 22 mmol/L (20-31) Anion Gap 10 (5-15) Blood Urea Nitrogen 12 mg/dL (9-23) Creatinine 0.41 mg/dL (0.550-1.02) Glomerular Filtration Rate Calc 105 mL/min (>90) BUN/Creatinine Ratio 29.3 (10.0-20.0) Serum Glucose 99 mg/dL (74-106) Calcium Level 8.4 mg/dL (8.7-10.4) Erythrocyte Sedimentation Rate 37 mm/hr (0-20) Prothrombin Time 12.1 sec (9.3-11.8) Prothrombin Time INR 1.16 (0.9-1.15) Activated Partial Thromboplast Time 32.2 SEC (24.5-34.5) Hemoglobin A1c 5.1 % A1C (<5.7) Magnesium Level 1.8 mg/dL (1.6-2.6) Total Bilirubin 0.5 mg/dL (0.2-1.0) Aspartate Amino Transferase (AST) 18 U/L (13-40) Alanine Aminotransferase (ALT) 19 U/L (7-40) Alkaline Phosphatase 29 U/L (46-116) Creatine Kinase 67 U/L (34-145) C-Reactive Protein High Sensitivity 2.81 mg/dL (<1.0) Total Protein 5.3 g/dL (5.7-8.2) Albumin 3.0 g/dL (3.2-4.8) Vitamin B12 Level 540 pg/mL (211-911) Vitamin D 25-Hydroxy 27.8 ng/mL (30.0-100) Thyroid Stimulating Hormone (TSH) 0.50 uIU/mL (0.55-4.78) Free Thyroxine (T4) Calculated 1.52 ng/dL (0.89-1.76) Total Triiodothyronine (TT3) 0.94 ng/mL (0.60-1.81) Lactic Acid Level 1.6 mmol/L (0.4-2.0) Test 01/30/25 09:52 B-Type Natriuretic Peptide 31.44 pg/mL (0-100) Other Laboratory Tests 02/03/25 05:06 Brief Hx & Hospital Course: Skye Earl is a 69-year-old female, with a history of dementia, osteoporosis, hypothyroidism, brain aneurysm, hydrocephalus, bed-bound and non- verbal. The patient was brought by family member to the [facility] with chief complain of worsening of right hip and sacral wound. The wound initially started in mid-to-late September and has followed a pattern of opening and closing over time. The caregiver reports that while the wound appears to have healed on the surface, it has not healed internally and has progressed to form what appears to be a deep cavity with black tissue visible inside, along with some yellow and red tissue. The wound causes pain during cleaning and wiping, which is evident despite the patient's dementia. She also has an aneurysm in her brain and recently underwent a lumbar puncture, which reportedly increased her intracranial pressure. The caregiver mentions the patient has been experiencing increased brain pressure for which patient was started on acetazolamide. In the ED the patient was evaluated and examined, labs showed: Lactic acid 2.6, WBC 9.1, tachypneic and tachycardic. The patient was admitted for further diagnosed and manangement. Medical History: Aneurysm in brain, Atherosclerosis, Dementia, Osteoporosis, hypothyroidism, hydrocephalus. PMH: Surgical History: Lumbar puncture performed recently, which increased intracranial pressure Social History: Living Situation: Lives with caregiver who works at the facility Caregiving Resources: Primary caregiver is working on obtaining home health services, no current home health aide or social services designee in place Medications and Supplements: levothyroxine 112 mcg, midodrine HCL 10 mg, memantine HCl 10 mg, Megestrol acetate 40 mg, oxybutynin 5 mg, vitamin D3 5000, alendronate sodium 70 mg, cyanocobalamin, Pepcid 40 mg Hospital course: During her admission in [facility] the patient was examined and evaluated at bedside, The patient's VS, labs and chart was reviewed every day. .The patient is non verbal, information was obtained from daughter, who is the patient's caregiver and POA. The case was discussed with family member that confirmed code status as: Chemical code only. Due to pressure decubitus ulcer the surgical team was onboard, they recommended no surgical intervention. The patient was managed with IV antibiotics, IV fluids and wound care. On 02/02/2025, the patient BP was in the low side, midriodine and a NS 500cc bolus was given, with improvement in BP. The patient's daughter, (Taylor) who is the patient's caregiver and POA wanted to discuss hospice options for this patient. Social service consult was placed, immigration case manager informed that the patient was been accepted in [facility]. The patient is being discharge today to hospice care. ROS: (the patient is non verbal, bedbound) General: Negative for fever, bed-bound, nonverbal neurological: Patient has dementia effecting baseline mental status. Physical exam: General Appearance: cachetic, pale, Alert, non-verbal, bed-bound, No acute distress HEENT: Atraumatic, PERRLA, EOMI, Mucous membr. moist/pink Respiratory: Normal air movement, normal breathing sounds. Cardiovascular: Regular rate, Normal S1, Normal S2, No murmurs, no chest pain on palpation of the chest. Abdominal: Normal bowel sounds, Soft, No tenderness, No hepatospenomegaly, No masses Extremities: No clubbing, No cyanosis, No edema, Normal pulses, No tenderness/swelling Skin: Right hip: Cover by dressing, there is a deep, circular wound grade 3-4, of approximate 3 cm deep, with clean base. Sacral area: Covered by clean dressing there is a sacral wound, grade 2-3. Psych/Mental Status: alert, non-verbal Plan: D/C to hospice Continue with hospice care Consults/Reason for consult Surgery: wound drainage Operations or Procedures PROCEDURE(s): CXRP - CHEST PORTABLE REASON: sob ORDER NUMBER(s): [id number], ACCESSION NUMBER(s): [id number] CHEST RADIOGRAPH INDICATION: sob TECHNIQUE: Single frontal view of the chest was obtained COMPARISON: XY CHEST PORTABLE on DOS: 07/02/24, XY CHEST PORTABLE on DOS: 07/02/24, XY CHEST PORTABLE on DOS: 5/13/25 FINDINGS: Lines and Tubes: None Lungs: Right upper to mid lung zone opacity Pleura: No effusion. No pneumothorax. Cardiomediastinal contours: Unremarkable Bones: No acute osseous abnormality. IMPRESSION: Right upper to mid lung zone patchy opacity. Correlate for possible external artifact like hair. Pneumonia can not be completely excluded. 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 tissue necrosis #Chronic Senile Dementia #Acute Hypokalemia #Protein-energy malnutrition of moderate degree #Chronic Hypothyroidism Discharge Disposition: Hospice- Medical Facility SNF Discharge Will this Physician continue t: No Discharge Instruct/Medications Diet: Cardiac 2g Na,low cholest Activity: No Restrictions, As Tolerated (The patient is bedbound) Scheduled Acetazolamide (Acetazolamide), 100 MG PO BID, (Reported) Alendronate Sodium (Alendronate Sodium), 1 TAB PO QWEEKLY, (Reported) Atorvastatin Calcium (Lipitor), 1 TAB PO DAILY, (Reported) Citalopram Hydrobromide (Citalopram Hydrobromide), 1 TAB PO DAILY, (Reported) Ibuprofen (Ibuprofen), 1 TAB PO TID Levothyroxine Sodium (Levothyroxine Sodium), 1 TAB PO DAILY, (Reported) Memantine Hydrochloride (Memantine HCl), 1 TAB PO BID, (Reported) Midodrine Hcl (Midodrine Hcl), 1 TAB PO DAILY, (Reported) Nitrofurantoin Monohyd Macro (Nitrofurantoin Monohydrat), 1 CAP PO BID, (Reported) Oxybutynin Chloride (Oxybutynin Chloride), 1 TAB PO BID, (Reported) Sulfamethoxazole W/Trimethopri (Bactrim Ds Tablet), 1 TAB PO BID Scheduled PRN Hydrocodone-Acetaminophen (Hydrocodone Bitartrate/AC 5-325 mg), 1 TAB PO Q6HR PRN Miscellaneous Medications Megestrol Acetate (Megestrol Acetate), (Reported) Discharge Statement: "Patient was advised to return to the ER or call 911 if any headaches, dizziness, shortness of breath, chest pain, abdominal pain, bleeding, fevers, or worsening of medical condition. Patient was counseled about treatment plan, medications, possible side effects, patientverbalized understanding. All questions were answered to the best of my ability. 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
[2025-02-03 13:00] VITALS: BP 102/63; PULSE 100; RESP 15; TEMP 98.1; O2SAT 95
[2025-02-03 13:10] LABS: Urine Protein, UAD Negative (Negative)
[2025-02-03 13:15] LABS: Amphetamine Screen, Urine Neg (NEGATIVE); Barbiturate Scree,Urine Neg (NEGATIVE); Benzodiazephine Screen, Urine Neg (NEGATIVE); Cannabinoid Screen, Urine Neg (NEGATIVE); Cocaine Screen, Urine Neg (NEGATIVE); Opiate Scree,Urine Neg (NEGATIVE); Phencyclidine Screen, Urine Neg (NEGATIVE)
[2025-02-03] MEDS ORDERED: VANCOMYCIN 750MG KIT 100 ML IV SCH (20:00)
== END 2025-02-03 15:45 | disposition hospice, home (50) | DRG 871 ==
LOC: ER 08:23 → EEVIPCON 13:17 → OVERFLOW 13:17 → EAST 01-31 14:15
PROVIDERS: ADMIT Student in an Organized Health Care Education/Training Program; ATTEND Student in an Organized Health Care Education/Training Program
DX: A41.9 Sepsis, unspecified organism (principal); G93.41 Metabolic encephalopathy; L89.154 Pressure ulcer of sacral region, stage 4; E44.0 Moderate protein-calorie malnutrition; F03.90 Unspecified dementia, unspecified severity, without behavioral disturbance, psychotic disturbance, mood disturbance, and anxiety; E03.9 Hypothyroidism, unspecified; J44.9 Chronic obstructive pulmonary disease, unspecified; Z68.1 Body mass index [BMI] 19.9 or less, adult; E87.6 Hypokalemia; F17.210 Nicotine dependence, cigarettes, uncomplicated; M81.0 Age-related osteoporosis without current pathological fracture; Z74.01 Bed confinement status; Z83.3 Family history of diabetes mellitus; Z80.9 Family history of malignant neoplasm, unspecified
CPT/HCPCS: 36415; 71045; 72192; 74176; 80048; 80053; 80202; 80307; 81001; 82306; 82550; 82607; 83036; 83605; 83735; 83880; 84439; 84443; 84480; 85025; 85610; 85652; 85730; 86141; 87040; 87077; 87081; 87086; 87186; 87205; G0378; J0692; J2470; J2543; J3490